=== PATIENT | female | born 1935 | race Caucasian/White ===

== ENCOUNTER 2019-03-18 17:44 | Inpatient (IN) | payer MEDICARE, BC ==
[~2019-03-18] VITALS: Ht 152.4 cm; Wt 52.2 kg
--- NOTE | 2019-03-18 17:50 | NUR ---
C/O GLF LAST NIGHT +R ARM PAIN AND BRUISING, -KO. PATIENT A/OX1, BREATHING EVEN AND UNLABORED, NO SOB NOTED, DPOA COUSIN AT BEDSIDE. PATIENT TRANSFERRED TO BED. WAITING FOR MD WATSON.
[2019-03-18 17:59] LABS: BASOPHILS % (AUTO) 0.3 % (0.0-2.0); EOSINOPHILS % (AUTO) 1.2 % (0.0-6.0); HEMATOCRIT 35 % (33-45); HEMOGLOBIN 11.7 g/dL (11.5-14.8); LYMPHOCYTES # (AUTO) 1.1 /CMM (0.8-4.8); LYMPHOCYTES % (AUTO) 7.8 % (20.0-44.0); MEAN CORPUSCULAR HGB CONC 33 g/dl (31.0-36.0); MEAN CORPUSCULAR VOLUME 92 fL (82-100); MONOCYTES # (AUTO) 0.9 /CMM (0.1-1.30); MONOCYTES % (AUTO) 6.8 % (2.0-12.0); NEUTROPHILS # (AUTO) 11.4 /CMM (1.8-8.9); NEUTROPHILS % (AUTO) 83.9 % (43.0-81.0); PLATELET COUNT (AUTO) 152 /CMM (150-450); RED BLOOD CELL COUNT(AUTO) 3.82 MIL/uL (4.0-5.2); WHITE BLOOD COUNT (AUTO) 13.6 K/uL (4.3-11.0)
--- NOTE | 2019-03-18 18:03 | NUR ---
ROUTE PROCESS ADMINISTRATOR AT BEDSIDE.
[2019-03-18 18:17] LABS: ALANINE AMINOTRANSFERASE 10 U/L (12-78); ALBUMIN 3.2 g/dL (3.4-5.0); ALKALINE PHOSPHATASE 71 U/L (46-116); ASPARTATE AMINOTRANSFERASE 45 U/L (15-37); BILIRUBIN,DIRECT 0.1 mg/dL (0.0-0.2); CALCIUM, SERUM 7.4 mg/dL (8.5-10.1); CARBON DIOXIDE 28 mmol/L (21-32); CHLORIDE 106 mmol/L (98-107); CREATININE 1.2 mg/dL (0.6-1.3); GLUCOSE 127 mg/dL (74-106); SODIUM SERUM 142 mmol/L (136-145); TOTAL PROTEIN, SERUM 7.3 g/dL (6.4-8.2); UREA NITROGEN, BLOOD 51 mg/dL (7-18)
--- NOTE | 2019-03-18 18:24 | NUR ---
PATIENT TAKEN TO CT.
[2019-03-18] MEDS ORDERED: GUAI5SYR PO (18:38)
[2019-03-18] MEDS ORDERED: POTA8TAB3 PO (18:38)
[2019-03-18] MEDS ORDERED: CARB1TAB24 PO (18:38)
[2019-03-18] MEDS ORDERED: LISI-603 PO (18:38)
[2019-03-18] MEDS ORDERED: MELO-105 PO (18:38)
[2019-03-18] MEDS ORDERED: FURO-145 PO (18:38)
--- NOTE | 2019-03-18 18:57 | NUR ---
URINE OBTAINED VIA STRAIGHT CATH, UA SENT TO LAB.
[2019-03-18 19:00] LABS: APPEARANCE,URINE Cloudy (CLEAR); BILIRUBIN,URINE Negative (NEGATIVE); BLOOD, URINE Small Ery/uL (NEGATIVE); COLOR,URINE Yellow (YELLOW); KETONES,URINE Negative (NEGATIVE); LEUKOCYTE ESTERASE ,URINE Small (NEGATIVE); NITRITE, URINE Positive (NEGATIVE); PH,URINE 5.5 (5.0-8.0); PROTEIN,URINE 100 mg/dl (NEGATIVE); UGLUCOSE Negative (NEGATIVE); UROBILINOGEN,URINE 0.2 EU/dL (0.2)
--- NOTE | 2019-03-18 19:06 | NUR ---
REPORT GIVEN TO HELEN RAZA.
[2019-03-18 19:13] LABS: BACTERIA,URINE 2+ /HPF (None Seen); SQUAMOUS EPITHELIAL CELL,UR Many /HPF (None Seen)
[2019-03-18 19:14] LABS: MUCUS,URINE Moderate /LPF (None Seen)
[2019-03-18] MEDS ORDERED: CEFTRIAXONE 1GM BAG (ER ONLY) 1 GM/50 ML PIGGYBACK IV ONE (19:30)
[2019-03-18] MEDS ORDERED: FUROSEMIDE 20 MG/2 ML VIAL IV ONE (19:30)
[2019-03-18] MEDS ORDERED: ASPIRIN 325 MG TABLET PO ONE (19:30)
[2019-03-18] MEDS ORDERED: FUROSEMIDE 20 MG/2 ML VIAL ONE (19:47)
[2019-03-18] MEDS ORDERED: CEFTRIAXONE 1GM BAG (ER ONLY) 50 ML IV ONE (19:47)
[2019-03-18] MEDS ORDERED: ASPIRIN 325 MG TABLET ONE (19:48)
--- NOTE | 2019-03-18 21:25 | NUR ---
Patient is resting comfortably in bed with eyes closed. Easily aroused. VSS. FAMILY AT BEDSIDE.
--- NOTE | 2019-03-18 21:46 | NUR ---
BED 309-1
--- NOTE | 2019-03-18 21:58 | NUR ---
REPORT GIVEN TO LUZ MARINA BRAVO FOR KORIN
[2019-03-18 22:08] VITALS: BP 130/70
--- NOTE | 2019-03-18 22:08 | NUR ---
RECEIVED PATIENT FROM ER VIA GURNEY IN STABLE CONDITION. PATIENT ACCOMPANIED BY JOAO (COUSIN/HEALTHCARE DPOA). PATIENT AWAKE, A/O X1N NON VERBAL BUT ABLE TO NOD TO YES OR NO QUESTIONS. PER COUSIN, PATIENT IS ONLY VERBAL DURING DAY HOURS WHEN SHE IS NOT TIRED. LEFT ARM SPLINT IN PLACE. NO FACIAL GRIMACING OR GROANING TO INDICATE PAIN OR DISCOMFORT. PERIPHERAL LINE INTACT AND PATENT. PATIENT S/E BY DR. RUBI ECHEVARRIA AND DISCUSSED POC WITH DPOA WHO VERBALIZED GOOD UNDERSTANDING. AWAITING ADMISSION ORDERS. BED IN LOW LOCK SETTING. ALL BELONGINGS KEPT NEAR BEDSIDE.
[2019-03-18] MEDS ORDERED: NITROGLYCERIN 0.4 MG/TAB BOTTLE SL PRN (23:00)
[2019-03-18] MEDS ORDERED: HEPARIN SODIUM, PORCINE 5000 UNITS/1 ML VIAL SQ SCH (23:00)
[2019-03-18] MEDS ORDERED: ONDANSETRON HCL/PF 4 MG/2 ML VIAL IV PRN (23:00)
[2019-03-18] MEDS ORDERED: METOPROLOL TARTRATE 25 MG TABLET PO SCH (23:00)
[2019-03-18] MEDS ORDERED: GUAIFENESIN/D-METHORPHAN HB 5 ML UDC PO PRN (23:00)
[2019-03-18] MEDS ORDERED: CEFTRIAXONE 1 G in IV D5W 50 ML IV SCH (23:00)
[2019-03-18] MEDS ORDERED: IV NS 0.9% 1,000 ML BAG IV SCH (23:00)
[2019-03-18] MEDS ORDERED: HYDROCODONE/APAP 5/325MG 1 EACH TABLET PO PRN (23:00)
[2019-03-18] MEDS: ATORVASTATIN 40 MG TABLET PO SCH (23:30)
[2019-03-19] VITALS: BP 109/63
[2019-03-19 04:00] VITALS: BP 130/62
--- NOTE | 2019-03-19 06:23 | NUR ---
BOX BUILDER NOTES PATIENT ASLEEP IN BED WITH NO DISTRESS NOTED. CALL LIGHT WITHIN REACH. PERIPHERAL LINE INTACT AND PATENT. NO C/O PAIN OR DISCOMFORT. BED IN LOW LOCK SETTING. BED ALARM ON AND FUNCTIONING PROPERLY. ALL BELONGINGS KEPT NEAR BEDSIDE. WILL ENDORSE TO ONCOMING SHIFT.
--- NOTE | 2019-03-19 07:15 | NUR ---
TELE/RN NOTE THE PATIENT IS RECEIVED IN BED. PATIENT SLEEPING. IN ROOM AIR AND RESPIRATION REGULAR AND UNLABORED. NO S/S DISTRESS. RAC G 20 PATENT AND NORMAL SALINE INFUSING AT 70 ML/HR AND NO S/S INFILTRATION NOTED. BED LOW AND LOCKED. SIDE RAILS UP X3. CALL LIGHT WITHIN REACH. WILL CONTINUE TO MONITOR.
[2019-03-19 07:33] LABS: ALANINE AMINOTRANSFERASE 23 U/L (12-78); ALBUMIN 2.6 g/dL (3.4-5.0); ALKALINE PHOSPHATASE 53 U/L (46-116); ASPARTATE AMINOTRANSFERASE 31 U/L (15-37); CALCIUM, SERUM 8.1 mg/dL (8.5-10.1); CARBON DIOXIDE 25 mmol/L (21-32); CHLORIDE 109 mmol/L (98-107); GLUCOSE 117 mg/dL (74-106); POTASSIUM 3.4 mmol/L (3.5-5.1); SODIUM SERUM 144 mmol/L (136-145); UREA NITROGEN, BLOOD 41 mg/dL (7-18)
[2019-03-19 07:56] LABS: IRON, SERUM 18 ug/dl (50-175); TOTAL IRON BINDING CAPACITY 145 ug/dl (250-450)
[2019-03-19 07:57] LABS: BASOPHILS % (AUTO) 0.4 % (0.0-2.0); EOSINOPHILS % (AUTO) 2.4 % (0.0-6.0); HEMATOCRIT 30 % (33-45); LYMPHOCYTES # (AUTO) 0.6 /CMM (0.8-4.8); LYMPHOCYTES % (AUTO) 6.7 % (20.0-44.0); MEAN CORPUSCULAR HGB CONC 33 g/dl (31.0-36.0); MEAN CORPUSCULAR VOLUME 92 fL (82-100); MONOCYTES # (AUTO) 0.6 /CMM (0.1-1.30); MONOCYTES % (AUTO) 6.5 % (2.0-12.0); NEUTROPHILS # (AUTO) 8.1 /CMM (1.8-8.9); PLATELET COUNT (AUTO) 117 /CMM (150-450); RED BLOOD CELL COUNT(AUTO) 3.27 MIL/uL (4.0-5.2); WHITE BLOOD COUNT (AUTO) 9.6 K/uL (4.3-11.0)
[2019-03-19 08:00] VITALS: BP 112/51
[2019-03-19 08:17] VITALS: BP 115/51
[2019-03-19] MEDS: ASPIRIN 81 MG TAB.CHEW PO SCH (09:31)
[2019-03-19] MEDS: POTASSIUM CHLORIDE 20 MEQ TAB.PRT.SR PO SCH ×2 (09:31→11:17)
[2019-03-19] MEDS: METOPROLOL TARTRATE 25 MG TABLET PO SCH ×2 (09:32→22:28)
[2019-03-19] MEDS: HEPARIN SODIUM, PORCINE 5000 UNITS/1 ML VIAL SQ SCH ×2 (09:33→23:02)
[2019-03-19] MEDS: PANTOPRAZOLE 40 MG TABLET.DR PO SCH (09:35)
[2019-03-19] MEDS: CARBIDOPA/LEVODOPA 25/250 MG 1 UDTAB PO SCH ×5 (09:35→22:28)
[2019-03-19 09:41] LABS: MAGNESIUM 2.3 mg/dL (1.8-2.4); PHOSPHORUS 3.7 mg/dL (2.5-4.9)
[2019-03-19 10:11] LABS: CHOLESTEROL 186 mg/dL (<200); HDL CHOLESTEROL 73 mg/dL (40-60); LDL 98 mg/dL (0-99); TRIGLYCERIDES 56 mg/dL (30-150)
[2019-03-19 10:44] LABS: THYROID STIMULATING HORMONE 2.006 uIU/mL (0.358-3.74)
[2019-03-19] MEDS: SOD FERRIC GLUC 125 MG in IV NS 0.9% 100 ML IV SCH (15:28)
[2019-03-19] MEDS: IV NS 0.9% 1,000 ML IV PRN ×2 (15:28)
--- NOTE | 2019-03-19 18:32 | NUR ---
MS/RN NOTE THE PATIENT IN BED. AWAKE. ALERT AND ORIENTED X1. NON-VERBAL BUT ABLE TO COMMUNICATE WITH SMALL GESTURES. IN ROOM AIR AND SATURATION IS AT 97%. RESPIRATION REGULAR AND UNLABORED. NO MANIFESTATION OF DISTRESS NOTED. RAC G 20 PATENT AND NORMAL SALINE INFUSING AT 60ML/HR AND NO S/S INFILTRATION NOTED. BEBETO LOW AND LOCKED. SIDE RAILS UP X3. CALL LIGHT WITHIN REACH. WILL ENDORSE TO CANDY MAKER HELPER.
[2019-03-19 20:00] VITALS: BP 140/86
[2019-03-19] MEDS: CEFTRIAXONE 1 G in IV D5W 50 ML IV SCH (20:15)
[2019-03-19] MEDS: ATORVASTATIN 40 MG TABLET PO SCH (22:28)
[2019-03-20 06:49] LABS: BASOPHILS % (AUTO) 0.3 % (0.0-2.0); EOSINOPHILS % (AUTO) 3.8 % (0.0-6.0); HEMATOCRIT 31 % (33-45); HEMOGLOBIN 10.3 g/dL (11.5-14.8); LYMPHOCYTES # (AUTO) 0.8 /CMM (0.8-4.8); LYMPHOCYTES % (AUTO) 9.5 % (20.0-44.0); MEAN CORPUSCULAR HGB CONC 34 g/dl (31.0-36.0); MEAN CORPUSCULAR VOLUME 92 fL (82-100); MONOCYTES # (AUTO) 0.7 /CMM (0.1-1.30); MONOCYTES % (AUTO) 8.1 % (2.0-12.0); NEUTROPHILS # (AUTO) 6.4 /CMM (1.8-8.9); NEUTROPHILS % (AUTO) 78.3 % (43.0-81.0); PLATELET COUNT (AUTO) 155 /CMM (150-450); RED BLOOD CELL COUNT(AUTO) 3.32 MIL/uL (4.0-5.2); WHITE BLOOD COUNT (AUTO) 8.1 K/uL (4.3-11.0)
--- NOTE | 2019-03-20 06:53 | NUR ---
MS RN NOTES PATIENT ASLEEP IN BED WITH NO DISTRESS NOTED. CALL LIGHT WITHIN REACH. ALL DUE MEDS GIVEN ORDERED WITH NO ASE NOTED. NO C/O PAIN OR DISCOMFORT. PERIPHERAL LINE INTACT AND PATENT. BED IN LOW LOCK SETTING. BED ALARM ON AND FUNCTIONING PROPERLY. ALL BELONGINGS KEPT NEAR BEDSIDE. WILL CONTINUE TO MONITOR.
[2019-03-20 07:16] LABS: CALCIUM, SERUM 8.4 mg/dL (8.5-10.1); CARBON DIOXIDE 27 mmol/L (21-32); CREATININE 0.9 mg/dL (0.6-1.3); GLUCOSE 114 mg/dL (74-106); MAGNESIUM 2.6 mg/dL (1.8-2.4); PHOSPHORUS 3.4 mg/dL (2.5-4.9); UREA NITROGEN, BLOOD 33 mg/dL (7-18)
--- NOTE | 2019-03-20 07:20 | NUR ---
MS/RN OPENING NOTE THE PATIENT IS RECEIVED IN BED. AWAKE, ALERT AND ORIENTED X1. THE PATIENT ABLE TO RESPOND VERBALLY. RECEIVING OXYGEN AT 2L/MIN VIA NASAL CANNULA AND DENIES SOB. RESPIRATION REGULAR AND UNLABORED. DENIES PAIN. RAC G 20 PATENT AND NORMAL SALINE INFUSING AT 60 ML/HR. NO S/S INFILTRATION NOTED. BED LOW AND LOCKED. SIDE RAILS UP X3. CALL LIGHT WITHIN REACH. WILL CONTINUE TO MONITOR.
[2019-03-20 07:29] LABS: CHLORIDE 108 mmol/L (98-107); POTASSIUM 4.3 mmol/L (3.5-5.1); SODIUM SERUM 143 mmol/L (136-145)
[2019-03-20 08:00] VITALS: BP 135/68
[2019-03-20] MEDS: ASPIRIN 81 MG TAB.CHEW PO SCH (08:09)
[2019-03-20] MEDS: CARBIDOPA/LEVODOPA 25/250 MG 1 UDTAB PO SCH ×5 (08:09→21:47)
[2019-03-20] MEDS: PANTOPRAZOLE 40 MG TABLET.DR PO SCH (08:09)
[2019-03-20] MEDS: METOPROLOL TARTRATE 25 MG TABLET PO SCH ×2 (08:10→21:00)
[2019-03-20] MEDS: HEPARIN SODIUM, PORCINE 5000 UNITS/1 ML VIAL SQ SCH ×2 (08:24→21:49)
[2019-03-20] MEDS: IV NS 0.9% 1,000 ML IV PRN (10:59)
[2019-03-20] MEDS ORDERED: ACETAMINOPHEN 325 MG TABLET PO PRN (13:30)
[2019-03-20] MEDS: SOD FERRIC GLUC 125 MG in IV NS 0.9% 100 ML IV SCH (15:02)
[2019-03-20 15:51] VITALS: BP 137/72
[2019-03-20 16:00] VITALS: BP 137/72
--- NOTE | 2019-03-20 19:04 | NUR ---
MS/RN CLOSING NOTE THE PATIENT ALERT AND ORIENTED X1. ABLE TO MAKE NEEDS KNOWN VERBALLY. RECEIVING OXYGEN AT 2L/MIN VIA NASAL CANNULA AND DENIES SOB. RESPIRATION REGULAR AND UNLABORED. DENIES PAIN. THE PATIENT IN NO APPARENT DISTRESS. LEFT HAND IS ELEVATED ON A PILLOW TO REDUCE SWELLING. NO S/S POOR CIRCULATION NOTED. RAC G 20 PATENT AND SALINE LOCKED. BED LOW AND LOCKED. SIDE RAILS UP X3. CALL LIGHT WITHIN REACH. WILL ENDORSE TO TRUCK SHOP MECHANIC.
[2019-03-20 20:00] VITALS: BP 110/64
--- NOTE | 2019-03-20 20:08 | NUR ---
MS RN NOTES RECEIVED PATIENT AWAKE IN BED WITH NO DISTRESS NOTED. CALL LIGHT WITHIN REACH. FAMILY AT BEDSIDE. PERIPHERAL LINE INTACT AND PATENT. NO FACIAL GRIMACING OR GROANING TO INDICATE PAIN OR DISCOMFORT. BED IN LOW LOCK SETTING. ROOM FREE OF CLUTTER AND BELONGINGS KEPT NEAR BEDSIDE. WILL CONTINUE TO MONITOR.
[2019-03-20] MEDS: CEFTRIAXONE 1 G in IV D5W 50 ML IV SCH (20:35)
[2019-03-20] MEDS: ATORVASTATIN 40 MG TABLET PO SCH (21:47)
[2019-03-21] MEDS: CARBIDOPA/LEVODOPA 25/250 MG 1 UDTAB PO SCH ×5 (07:00→21:15)
[2019-03-21 07:15] LABS: BASOPHILS % (AUTO) 0.3 % (0.0-2.0); EOSINOPHILS % (AUTO) 3.5 % (0.0-6.0); HEMATOCRIT 30 % (33-45); HEMOGLOBIN 10.1 g/dL (11.5-14.8); LYMPHOCYTES % (AUTO) 12.4 % (20.0-44.0); MEAN CORPUSCULAR HGB CONC 34 g/dl (31.0-36.0); MEAN CORPUSCULAR VOLUME 92 fL (82-100); MONOCYTES # (AUTO) 0.7 /CMM (0.1-1.30); MONOCYTES % (AUTO) 8.2 % (2.0-12.0); NEUTROPHILS # (AUTO) 6.2 /CMM (1.8-8.9); NEUTROPHILS % (AUTO) 75.6 % (43.0-81.0); PLATELET COUNT (AUTO) 189 /CMM (150-450); RED BLOOD CELL COUNT(AUTO) 3.26 MIL/uL (4.0-5.2); WHITE BLOOD COUNT (AUTO) 8.2 K/uL (4.3-11.0)
[2019-03-21 07:25] LABS: ALANINE AMINOTRANSFERASE 20 U/L (12-78); ALBUMIN 2.6 g/dL (3.4-5.0); ALKALINE PHOSPHATASE 81 U/L (46-116); ASPARTATE AMINOTRANSFERASE 41 U/L (15-37); BILIRUBIN,TOTAL 0.8 mg/dL (0.2-1.0); CALCIUM, SERUM 8.2 mg/dL (8.5-10.1); CARBON DIOXIDE 26 mmol/L (21-32); CHLORIDE 110 mmol/L (98-107); CREATININE 0.9 mg/dL (0.6-1.3); GLUCOSE 107 mg/dL (74-106); MAGNESIUM 2.4 mg/dL (1.8-2.4); PHOSPHORUS 3.2 mg/dL (2.5-4.9); POTASSIUM 3.9 mmol/L (3.5-5.1); SODIUM SERUM 145 mmol/L (136-145); TOTAL PROTEIN, SERUM 6.1 g/dL (6.4-8.2); UREA NITROGEN, BLOOD 28 mg/dL (7-18)
--- NOTE | 2019-03-21 07:35 | NUR ---
MS RN OPENING NOTE RECEIVED PT IN BED, ALERT AND ORIENTED X1, EYES OPEN SPONTANEOUSLY TO VERBAL AND TACTILE STIMULI, NO ACUTE DISTRESS NOTED AT THIS TIME, BREATHING IS EVEN AND UNLABORED ON 2L NC. LEFT HAND BRACE IN PLACE, NEUROVASCULAR STATUS INTACT. RIGHT HAND #20G IS PATENT, CLEAN, DRY AND INTACT. ASPIRATION PRECAUTIONS MAINTAINED. ALL NEEDS ATTENDED TO. BED IS LOCKED AND IN LOWEST POSITION, SIDE RAILS UP X2, BED ALARM ON, CALL LIGHT AND POSSESSIONS WITHIN REACH.
[2019-03-21 08:00] VITALS: BP 148/70
[2019-03-21] MEDS: PANTOPRAZOLE 40 MG TABLET.DR PO SCH (08:39)
[2019-03-21] MEDS: HEPARIN SODIUM, PORCINE 5000 UNITS/1 ML VIAL SQ SCH ×2 (08:40→21:10)
[2019-03-21] MEDS: METOPROLOL TARTRATE 25 MG TABLET PO SCH ×2 (08:40→21:15)
[2019-03-21] MEDS: ASPIRIN 81 MG TAB.CHEW PO SCH (08:51)
[2019-03-21] MEDS: LOSARTAN POTASSIUM 50 MG TABLET PO SCH (09:00)
--- NOTE | 2019-03-21 10:16 | NUR ---
MS RN NOTES HELD JOSSELYN B/P 122/55 HR 56.
--- NOTE | 2019-03-21 14:49 | NUR ---
MS RN NOTE PAGED FOR , AWAITING RESPONSE.
--- NOTE | 2019-03-21 14:54 | NUR ---
MS RN NOTE SPOKE WITH ON THE PHONE. PER OKAY TO START KEFLEX 500MG BID AND D/C ALL IV MEDICATIONS AND FOR PT TO NOT HAVE IV ACCESS AT THIS TIME. INFORMED THAT FAMILY IS REFUSING D/C PENDING HOSPITAL BED DELIVERY WHICH PER LINDY CUNHA WILL MOST LIKELY NOT HAPPEN TODAY. PER , PT IS CLEARED FOR D/C, AND "I WANT PT TO GO, THEY CAN WAIT FOR THE HOSPITAL BED AT HOME". INFORMED PACKAGING SALES REPRESENTATIVE AND CHARGE NURSE.
[2019-03-21 16:00] VITALS: BP 144/68
[2019-03-21] MEDS: CEPHALEXIN MONOHYDRATE 500 MG CAPSULE PO SCH (17:54)
--- NOTE | 2019-03-21 18:10 | NUR ---
MS RN CLOSING NOTE PT IN BED, ALERT AND ORIENTED X1, EYES OPEN SPONTANEOUSLY TO VERBAL AND TACTILE STIMULI, NO ACUTE DISTRESS NOTED AT THIS TIME, BREATHING IS EVEN AND UNLABORED ON 2L NC. LEFT HAND BRACE IN PLACE, NEUROVASCULAR STATUS INTACT. PT WITHOUT IV ACCESS, AWARE. ADLS PROVIDED AND PT ASSISTED TO TURN AND REPOSITION Q2H FOR THE DURATION OF THE SHIFT. ASPIRATION PRECAUTIONS MAINTAINED. PRIVATE CAREGIVER AT THE BEDSIDE. ALL NEEDS ATTENDED TO. BED IS LOCKED AND IN LOWEST POSITION, SIDE RAILS UP X2, BED ALARM ON, CALL LIGHT AND POSSESSIONS WITHIN REACH.
--- NOTE | 2019-03-21 19:10 | NUR ---
CHANGE OF SHIFT REPORT Patient in bed, awake, A/O x1 poor concentration. On supplemental oxygen, appears comfortable in bed. No IV Peripheral line, MD aware per report. Pending discharge, awaiting hospital bed at home. Fall precaution, maintained safety. Caregiver at bedside.
[2019-03-21 20:00] VITALS: BP 114/84
[2019-03-21] MEDS: ATORVASTATIN 40 MG TABLET PO SCH (21:15)
[2019-03-21 22:11] VITALS: BP 114/84
[2019-03-22] MEDS: CARBIDOPA/LEVODOPA 25/250 MG 1 UDTAB PO SCH ×3 (06:00→15:09)
--- NOTE | 2019-03-22 06:07 | NUR ---
END OF SHIFT REPORT Patient in bed, A/O x 1. On supplemental oxygen, tolerating well. Left hand with splint, NWB left hand per ortho. No c/o pain, slept well. Reposition every 2 hours. Fall precaution, maintained safety. No acute events overnight. Pending discharge home, awaiting hospital bed at home. Will endorse to oncoming RN.
--- NOTE | 2019-03-22 07:30 | NUR ---
RN NOTES RECEIVED PATIENT IN BED, A/A/O X1, NOT ABLE TO MAKE NEEDS KNOWN. ON SUPPLEMENTAL OXYGEN VIA NASAL CANNULA AT 2 LPM, BREATHING UNLABORED, WITH FACIAL GRIMACE AT THIS TIME, WILL ADMINISTER PRN MEDICATION IF STILL NEEDED. PATIENT WITH NO IV LINE AT THIS TIME (PER FELICIANORN- ATTENDING MD IS AWARE). LEFT HAND SWELLING, WITH BRUISING TOO, XRAY RESULTS FOLLOWS: WITH 2ND AND 3RD METACARPAL BONE FRACTURE, HAND ON CAST AT THIS TIME. SAFETY MEASURES OBSERVED AND MAINTAINED. BED LOW AND LOCKED POSITIONED. CALL LIGHT PLACED WITHIN REACH. WILL CONTINUE TO MONITOR PATIENT AND ANTICIPATE NEEDS
[2019-03-22 08:00] VITALS: BP 109/61
[2019-03-22] MEDS: PANTOPRAZOLE 40 MG TABLET.DR PO SCH (09:16)
[2019-03-22] MEDS: ASPIRIN 81 MG TAB.CHEW PO SCH (09:16)
[2019-03-22] MEDS: CEPHALEXIN MONOHYDRATE 500 MG CAPSULE PO SCH (09:17)
[2019-03-22] MEDS: LOSARTAN POTASSIUM 50 MG TABLET PO SCH (09:17)
[2019-03-22] MEDS: METOPROLOL TARTRATE 25 MG TABLET PO SCH (09:18)
[2019-03-22] MEDS: HEPARIN SODIUM, PORCINE 5000 UNITS/1 ML VIAL SQ SCH (09:25)
--- NOTE | 2019-03-22 10:00 | NUR ---
RN NOTES PAGED CASE MANAGEMENT TEAM TO RELAY COUSIN'S REQUEST (AVELINO) TO TALK TO THEM. SPOKE TO PETAR, PER THE LATER WILL RELAY THE MESSAGE TO ALLISON.
--- NOTE | 2019-03-22 12:00 | NUR ---
RN NOTES COORDINATED WITH CASE MANAGEMENT REGARDING DISCHARGE
--- NOTE | 2019-03-22 13:27 | NUR ---
MS/RN Oxygen saturation Patient noted to be desaturating, pulse ox on room air ranging from 85 - 89%. Placed on 2l via nasal cannula, pulse ox now reading >90%. Addendum: 03/22/19 at 1408 by MIRIAN ANGUIANO saturation dropped to 85% upon ambulation, rising to 86% at rest.
--- NOTE | 2019-03-22 14:30 | NUR ---
RN NOTES FACILITATED DISCHARGE ORDERS. FAMILY'S QUESTIONS AND CONCERNS ADDRESSED APPROPRIATELY. SKIN ASSESSMENT DONE: SKI INTACT. ALL BELONGING ACCOUNTED FOR, NO BELONGINGS AT BEDSIDE. PER JOAO (COUSIN) PATIENT HAS NOT BEEN GIVEN PNEUMONIA VACCINE AND WAS REQUESTING IF IT CAN BE GIVEN, WILL PAGED DR ECHEVARRIA.
[2019-03-22] MEDS ORDERED: PNEUMOCOCCAL 23-VAL P-SAC VAC 0.5 ML VIAL SQ ONE (15:30)
--- NOTE | 2019-03-22 15:30 | NUR ---
RN NOTES OBTAINED ORDER FOR PNEUMONIA VACCINE FROM DR ECHEVARRIA. ORDER NOTED AND CARRIED OUT
--- NOTE | 2019-03-22 15:50 | NUR ---
RN NOTES PATIENT DISCHARGE. PRESCRIPTION AND DISCHARGE PACKET HANDED TO COUSIN (JOAO).ID BAND REMOVED. PATIENT WHEELED OUT VIA GURNEY ACCOMPANIED BY GURJIT( PRIVATE CAREGIVER) AND 2 EMT
[2019-03-22 16:00] VITALS: BP_SYST 132; BP_SYST 134; BP_DIAS 62
== END 2019-03-22 16:00 | disposition home or self-care (01) | DRG 562 ==
LOC: ER 17:46 → TELE 21:59 → MED 03-19 10:22
PROVIDERS: ADMIT Internal Medicine; ATTEND Internal Medicine
DX: S62.311A Displaced fracture of base of second metacarpal bone, left hand, initial encounter for closed fracture (principal); I21.A1 Myocardial infarction type 2; I21.4 Non-ST elevation (NSTEMI) myocardial infarction; G92 Toxic encephalopathy; N17.9 Acute kidney failure, unspecified; N39.0 Urinary tract infection, site not specified; E44.0 Moderate protein-calorie malnutrition; J98.11 Atelectasis; E86.0 Dehydration; W07.XXXA Fall from chair, initial encounter; Y92.129 Unspecified place in nursing home as the place of occurrence of the external cause; Z79.899 Other long term (current) drug therapy; D64.9 Anemia, unspecified; D50.9 Iron deficiency anemia, unspecified; I27.20 Pulmonary hypertension, unspecified; I50.9 Heart failure, unspecified; I11.0 Hypertensive heart disease with heart failure; S62.323A Displaced fracture of shaft of third metacarpal bone, left hand, initial encounter for closed fracture; G20 Parkinson's disease; Z79.82 Long term (current) use of aspirin; Z66 Do not resuscitate; Z51.5 Encounter for palliative care; R09.02 Hypoxemia; D63.8 Anemia in other chronic diseases classified elsewhere; B96.20 Unspecified Escherichia coli [E. coli] as the cause of diseases classified elsewhere
CPT/HCPCS: 36415; 70450-TC; 71045-TC; 73090-TC; 73130-TC; 80048-TC; 80053-TC; 80061-TC; 80076-TC; 81000-TC; 83540-TC; 83735-TC; 83880; 84100-TC; 84439-TC; 84443-TC; 84484-TC; 85025-TC; 85045-TC; 85730-TC; 87081-TC; 87086-TC; 87186-TC; 90732; 93307-TC; 93880-TC; 93970-TC; 94799-TC; 97110-TC; 97530-TC; G0378; J0696; J1644; J1940; J2916; J7030; J7060

== ENCOUNTER 2019-08-28 09:40 | Emergency (ER) | payer MEDICARE, BC ==
[~2019-08-28] VITALS: Ht 157.5 cm; Wt 49.0 kg
[~2019-08-28 09:40] MED LIST: CARB1TAB24 PO; FURO-145 PO; GUAI5SYR PO; LISI-603 PO; MELO-105 PO; POTA8TAB3 PO
--- NOTE | 2019-08-28 10:17 | NUR ---
blister popped, covered with dressing.
[2019-08-28 10:26] VITALS: BP 132/66
== END 2019-08-28 10:28 | disposition home or self-care (01) ==
LOC: ER 09:48
DX: S60.422A Blister (nonthermal) of right middle finger, initial encounter (principal); S60.424A Blister (nonthermal) of right ring finger, initial encounter; S60.426A Blister (nonthermal) of right little finger, initial encounter; G20 Parkinson's disease; Z79.899 Other long term (current) drug therapy; X58.XXXA Exposure to other specified factors, initial encounter; Y93.89 Activity, other specified; Y92.89 Other specified places as the place of occurrence of the external cause; Y99.8 Other external cause status

== ENCOUNTER 2020-03-10 15:39 | Inpatient (IN) | payer MEDICARE, BC ==
[~2020-03-10] VITALS: Ht 157.5 cm; Wt 41.3 kg
[2020-03-10] MEDS ORDERED: ACETAMINOPHEN 325 MG TABLET PO ONE (16:00)
[2020-03-10] MEDS ORDERED: IV NS 0.9% 1,000 ML BAG IV ONE (16:00)
--- NOTE | 2020-03-10 16:02 | NUR ---
CALLED [facility] [phone] FOR ACCEPTANCE.
[2020-03-10 16:11] LABS: BASOPHILS % (AUTO) 0.1 % (0.0-2.0); HEMATOCRIT 28 % (33-45); LYMPHOCYTES # (AUTO) 0.3 /CMM (0.8-4.8); LYMPHOCYTES % (AUTO) 1.7 % (20.0-44.0); MEAN CORPUSCULAR HGB CONC 32 g/dl (31.0-36.0); MEAN CORPUSCULAR VOLUME 88 fL (82-100); MONOCYTES # (AUTO) 0.1 /CMM (0.1-1.30); MONOCYTES % (AUTO) 0.3 % (2.0-12.0); NEUTROPHILS # (AUTO) 16.3 /CMM (1.8-8.9); NEUTROPHILS % (AUTO) 97.9 % (43.0-81.0); PLATELET COUNT (AUTO) 337 /CMM (150-450); RED BLOOD CELL COUNT(AUTO) 3.19 MIL/uL (4.0-5.2); WHITE BLOOD COUNT (AUTO) 16.6 K/uL (4.3-11.0)
[2020-03-10] MEDS ORDERED: ACETAMINOPHEN 325 MG TABLET ONE (16:14)
[2020-03-10 16:22] LABS: CALCIUM, SERUM 8.4 mg/dL (8.5-10.1); CARBON DIOXIDE 30 mmol/L (21-32); CHLORIDE 104 mmol/L (98-107); GLUCOSE 104 mg/dL (74-106); POTASSIUM 4.1 mmol/L (3.5-5.1); SODIUM SERUM 139 mmol/L (136-145); UREA NITROGEN, BLOOD 31 mg/dL (7-18)
[2020-03-10 16:23] LABS: APPEARANCE,URINE Clear (CLEAR); BILIRUBIN,URINE Negative (NEGATIVE); BLOOD, URINE Negative Ery/uL (NEGATIVE); COLOR,URINE Yellow (YELLOW); KETONES,URINE Negative (NEGATIVE); LEUKOCYTE ESTERASE ,URINE Negative (NEGATIVE); NITRITE, URINE Negative (NEGATIVE); PH,URINE 5.5 (5.0-8.0); PROTEIN,URINE 30 mg/dl (NEGATIVE); UGLUCOSE Negative (NEGATIVE); UROBILINOGEN,URINE 0.2 EU/dL (0.2)
--- NOTE | 2020-03-10 16:25 | NUR ---
BIBFAMILY FROM HOME TO ER BED 5. NON VERBAL BUT AWAKE AND ALERT. ABLE TO FOLLOW COMMAND. NON AMBULATORY, BROUGHT IN ON WHEELCHAIR. CAME IN FOR FEVER THAT STARTED TODAY. PER REPORT, PT HAVE PRESSURE ULCER ON R HIP AND COCCYX W/ R BEING UTD - BLACK ECHAR NOTED. 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 RECTAL TEMP NOTED 101.4. MD WAS AT THE BEDSIDE FOR EVAL. ORDERS RECEIVED, NOTED AND CARRIED OUT. IV LINE OBTAINED ON THE LFA 18G. BLOO DRAWN AND GIVEN TO FINISHING MACHINE OPERATOR. PT IN ON MONITOR.
[2020-03-10 16:28] LABS: ALANINE AMINOTRANSFERASE 10 U/L (12-78); ALBUMIN 2.1 g/dL (3.4-5.0); ALKALINE PHOSPHATASE 130 U/L (46-116); ASPARTATE AMINOTRANSFERASE 41 U/L (15-37); BILIRUBIN,DIRECT 0.2 mg/dL (0.0-0.2); BILIRUBIN,TOTAL 0.5 mg/dL (0.2-1.0); TOTAL PROTEIN, SERUM 6.3 g/dL (6.4-8.2)
[2020-03-10] MEDS ORDERED: VANCOMYCIN 1 GM in IV D5W 250 ML IV ONE (16:30)
[2020-03-10] MEDS ORDERED: CEFEPIME 1 GM in IV D5W 50 ML IV ONE (16:30)
--- NOTE | 2020-03-10 16:30 | NUR ---
COVID SWAB SENT TO LAB
[2020-03-10 16:35] LABS: BACTERIA,URINE Few /HPF (None Seen); RBC,URINE 0-2 /HPF (0-2); URINE AMORPHOUS PHOSPHATES Few /HPF (None Seen); WBC,URINE 0-2 /HPF (0-3)
[2020-03-10 16:36] LABS: MUCUS,URINE Few /LPF (None Seen)
--- NOTE | 2020-03-10 17:46 | NUR ---
REPORT GIVEN LUZ MARINA DYER FOR KORIN
--- NOTE | 2020-03-10 18:04 | NUR ---
PT TRANSPORTED TO UNIT ON GURNEY WITH EMT AND RN AT BEDSIDE W/ ACLS PROTOCOL. NAD NOTED DURING TRANSPORT.
--- NOTE | 2020-03-10 18:45 | NUR ---
RN OPENING NOTE Patient was transferred to room 116-2 with 2 nurses from ER. Hooked to tele monitor. Vital signs as follows temp: 98.7 HR 86 RR 18 O2 Sat 95% BP 106/61. On room air tolerating well. Informed Dr. Jaramillo patient is here. Gave his phone number to call for orders. Will endorse to overnight caregiver nurse for carol
[2020-03-10 18:52] LABS: C-REACTIVE PROTEIN 18.3 mg/dL (0.0-0.9)
[2020-03-10] MEDS ORDERED: ENOXAPARIN SODIUM 40 MG/0.4 ML DISP.SYRIN SQ STA (19:01)
--- NOTE | 2020-03-10 19:30 | NUR ---
RN OPENING NOTES Received patient resting in bed with VS as follow: T 98.5; HR 88, O2 of 92% on RA; BP 109/60. A/O x1, nonverbal. The patient is a patient of Remi Whitaker. The patient has been placed on NC ON 2L of O2. Now the patient is saturating at 100%. Upon assessment, wound on the sacral area and on the R- Hip has been noted. Bilateral heel redness. Ear skin tear on left ear on the antihelix fold. The patient is DNR/ DNI. The patient was admitted for severe sepsis. Orders for medications were taken over the phone. will continue to monitor and follow the MD recommendations. All safety mechanisms are in place, bed is in the lowest position, locked, side rails up x2. call light within reach.
[2020-03-10 20:00] VITALS: BP 112/60
[2020-03-10] MEDS ORDERED: ONDANSETRON HCL/PF 4 MG/2 ML VIAL IV PRN (20:30)
[2020-03-10] MEDS ORDERED: GUAIFENESIN/D-METHORPHAN HB 5 ML UDC PO PRN (20:30)
--- NOTE | 2020-03-10 21:00 | NUR ---
RN NOTES, CALLED DR ECHEVARRIA TO FOLLOW UP WITH ADMISSION ORDERS, AND MD REPLIED WITH ADMISSION ORDERS, ALL ORDERS NOTED AND CARRIED OUT, WILL ADMINISTER MEDICATIONS ORDERED, WILL CONTINUE TO MONITOR CLOSELY.
[2020-03-10] MEDS: IV D5/0.45 NACL 1,000 ML IV PRN (21:11)
[2020-03-10] MEDS: ENOXAPARIN SODIUM 30 MG/0.3 ML DISP.SYRIN SQ SCH (21:42)
[2020-03-10 22:00] VITALS: BP 116/60
[2020-03-11] VITALS (8 sets, daily range): BP systolic 87–128; BP diastolic 44–67
--- NOTE | 2020-03-11 | NUR ---
Wound culture sample was collected from the sacral area.
[2020-03-11] MEDS ORDERED: CEFEPIME 1 GM VIAL ONE (05:56)
[2020-03-11] MEDS ORDERED: CEFEPIME 1 GM VIAL IV SCH (06:00)
[2020-03-11] MEDS: ACETAMINOPHEN 325 MG TABLET PO PRN (06:07)
[2020-03-11] MEDS: CEFEPIME 1 GM in IV NS 0.9% 50 ML IV SCH ×2 (06:07→17:58)
[2020-03-11 06:17] LABS: BASOPHILS % (AUTO) 0.2 % (0.0-2.0); HEMATOCRIT 27 % (33-45); HEMOGLOBIN 8.8 g/dL (11.5-14.8); LYMPHOCYTES # (AUTO) 0.2 /CMM (0.8-4.8); LYMPHOCYTES % (AUTO) 1.6 % (20.0-44.0); MEAN CORPUSCULAR HGB CONC 32 g/dl (31.0-36.0); MEAN CORPUSCULAR VOLUME 88 fL (82-100); MONOCYTES # (AUTO) 0.1 /CMM (0.1-1.30); MONOCYTES % (AUTO) 1.3 % (2.0-12.0); NEUTROPHILS # (AUTO) 11.3 /CMM (1.8-8.9); NEUTROPHILS % (AUTO) 96.9 % (43.0-81.0); PLATELET COUNT (AUTO) 295 /CMM (150-450); RED BLOOD CELL COUNT(AUTO) 3.12 MIL/uL (4.0-5.2); WHITE BLOOD COUNT (AUTO) 11.6 K/uL (4.3-11.0)
--- NOTE | 2020-03-11 06:21 | NUR ---
Gave Tylenol (650mg) to patient for a temperature of 100.4, will reassess in 30min.
--- NOTE | 2020-03-11 06:24 | NUR ---
RN CLOSING NOTES The patient is resting on bed. A/O x1, nonverbal. VS are WNL. no S/S acute respiratory distress noted. The patient remains on 2L OF O2 NC, SATURATING AT 100%. The pt is on external tele monitor, SR, HR 70's. The patient has a wound on the right hip, on the sacral area, and redness on both heels. The patient has an 18G on the left arm, running D5 1/2 NS @ 85 ml/hr. The remains stable at this time. All safety mechanisms in place, bed alarm on, locked in the lowest position, and call light within reach. Will endorse the next shift for the continuity of care.
[2020-03-11 06:35] LABS: THYROID STIMULATING HORMONE 2.141 uIU/mL (0.358-3.74)
[2020-03-11 06:37] LABS: ALBUMIN 1.9 g/dL (3.4-5.0); BILIRUBIN,TOTAL 0.4 mg/dL (0.2-1.0); CALCIUM, SERUM 8.1 mg/dL (8.5-10.1); CREATININE 0.9 mg/dL (0.6-1.3); POTASSIUM 3.9 mmol/L (3.5-5.1); TOTAL PROTEIN, SERUM 6.2 g/dL (6.4-8.2)
--- NOTE | 2020-03-11 07:30 | NUR ---
RN OPENING NOTES PATIENT RESTING IN BED, AO X 1, NONVERBAL, OBEYS SIMPLE COMMAND, ON 2L O2 NC, 100% SAT, AFEBRILE, NO SIGNS OF PAIN, . SR HR 78, LEFT FA IV ACCESS FLUSHES WELL, SITE CLEAR. WITH D5 1/2 NS AT 85 ML/HR. RUNNING. SEE NURSING FLOWSHEET FOR SKIN ISSUES. FOR WOUND CONSULT. UNABLE TO UNDERSTAND POC, BED LOW LOCKED. CALL LIGHT WITHIN REACH, WILL TURN AND REPOSITION Q 2 HOURS. CALL LIGHT WITHIN REACH. WILL CONTINUE TO MONITOR.
[2020-03-11] MEDS ORDERED: CARBIDOPA/LEVODOPA 25/250 MG 1 UDTAB PO SCH (09:00)
[2020-03-11] MEDS: PANTOPRAZOLE 40 MG TABLET.DR PO SCH (09:54)
[2020-03-11] MEDS: VANCOMYCIN 0.75 GM in IV D5W 250 ML IV SCH (10:01)
[2020-03-11] MEDS: IV D5/0.45 NACL 1,000 ML IV PRN (10:24)
--- NOTE | 2020-03-11 12:24 | NUR ---
WOUND CARE CONSULT: PT PRESENTS WITH FOUL PURULENT WOUNDS, PRESENT ON ADMISSION INCLUDING RT HIP WOUND (UNSTAGEABLE)WITH NECROTIC TISSUE, LEFT HIP WOUND (UNSTAGEABLE) WITH NECROTIC TISSUE AND SACRAL STAGE 4 ULCER WELL LEFT EAR STAGE 4 ULCER, ALL PRESENT ON ADMISSION. RECOMMENDATIONS MADE FOR SKIN PROTECTION AND WOUND CARE. DISCUSSED WITH NURSING STAFF. PT IS ON ARABELLA ISOFLEX LOW AIRLOSS BED. PT IS INCONTINENT. LEGS ARE DRAWN UP TO BODY. DIETARY CONSULT IN PLACE. WILL SEE PRN. MOSELEY IN AGREEMENT WITH PLAN OF CARE. Addendum: 03/11/20 at [address] ECHEVARRIA CALLED TO DISCUSS WOUNDS AND RECOMMENDATION FOR SURGICAL CONSULT. LEFT. Addendum: 03/11/20 at 1251 by DAT CARABALLO RECEIVED CALL FROM DR ECHEVARRIA FOR SURGICAL CONSULT. VEL GALLEGOS, SURGICAL P.A. NOTIFIED OF SURGICAL CONSULT REQUEST.
[2020-03-11] MEDS ORDERED: Z GUARD REMEDY 2 OZ OINT TP PRN (12:30)
--- NOTE | 2020-03-11 12:30 | NUR ---
RN NOTES BUTT CATHETER IN PLACE DRAINING YELLOW TURBID URINE. ADEQUATE AMOUNT.
[2020-03-11] MEDS ORDERED: IV NS 0.9% 500 ML IV ONE (14:30)
[2020-03-11] MEDS ORDERED: MORPHINE SULFATE INJ 2 MG/ML DISP.SYRIN IV PRN (15:30)
[2020-03-11] MEDS: DAKINS QUARTER STRENGTH (0.125%) 480 ML BOTTLE TOP SCH (15:33)
[2020-03-11] MEDS: Z GUARD REMEDY 2 OZ OINT TP SCH (15:34)
[2020-03-11] MEDS: HYDROGEL DRESSING 90 GM TUBE TP SCH (15:35)
[2020-03-11] MEDS ORDERED: LISINOPRIL (20MG) 20 MG TABLET PO SCH (17:00)
[2020-03-11] MEDS: ENSURE ENLIVE CHOC 237 ML CAN PO SCH (17:59)
--- NOTE | 2020-03-11 18:55 | NUR ---
RN CLOSING NOTES PATIENT RESTING IN BED, AO X 1, NONVERBAL, OBEYS SIMPLE COMMAND, ON 2L O2 NC, 98% SAT, AFEBRILE, NO SIGNS OF PAIN, . SR HR 78, LEFT FA IV ACCESS FLUSHES WELL, SITE CLEAR. WITH D5 1/2 NS AT 85 ML/HR. RUNNING. PRESCRIBED WOUND CARE AND PM CARE DONE EARLIER. PUREED DIET. FEEDER. CRUSHED MEDS. BUTT CATH IN PLACE WITH 800 ML OUTPUT. BED LOW LOCKED. CALL LIGHT WITHIN REACH, TURNED AND REPOSITIONED Q 2 HOURS. CALL LIGHT WITHIN REACH. ALL NEEDS MET. WILL ENDORSE TO NEXT SHIFT FOR KORIN. SEEN BY DR. ECHEVARRIA EARLIER. POC DISCUSSED WITH ELPIDIO ODONNELL FOR DEBRIDEMENT OF WOUND PER VEL GALLEGOS TOMORROW. NEEDS CONSENT.
--- NOTE | 2020-03-11 20:44 | NUR ---
RN NOTE RECEIVED ALERT FOR CRITICAL LAB RESULT: PRELIMINARY BLOOD CULTURE SHOWS GRAM VARIABLE RODS. PT IS ALREADY ON VANCOMYCIN AND MERREM IV. NOTIFIED DR. GONG ( MIXER PIGMENT).
--- NOTE | 2020-03-11 20:54 | NUR ---
RN NOTE ENDORSED BY AM NURSE THAT PT WILL BE HAVING WOUND DEBRIDEMENT TOMORROW. NOTED WITHOUT ORDER IN CHART. CALLED EL FUNES AND CLARIFIED THAT WOUND DEBRIDEMENT WILL NOT BE DONE TOMORROW AND THAT IT WILL BE DONE LATER IN THE WEEK ONCE COVID-19 STATUS IS RESULTED. WILL ADMINISTER LOVENOX TONIGHT ORDERED.
[2020-03-11] MEDS: ENOXAPARIN SODIUM 30 MG/0.3 ML DISP.SYRIN SQ SCH (21:20)
[2020-03-12] VITALS: BP 107/62
[2020-03-12] MEDS: IV D5/0.45 NACL 1,000 ML IV PRN (00:35)
--- NOTE | 2020-03-12 02:20 | NUR ---
RN NOTE RECEIVED ALERT FOR CRITICAL LAB: PRELIMINARY BLOOD CULTURE SHOWS GRAM NEGATIVE RODS. PT IS ALREADY ON VANCOMYCIN AND CEFIPIME IV. NOTIFIED DR. OGNG ( MOLDING UTILITY WORKER).
[2020-03-12 04:00] VITALS: BP 149/74
[2020-03-12] MEDS: VANCOMYCIN 0.75 GM in IV D5W 250 ML IV SCH ×2 (04:34→22:04)
[2020-03-12] MEDS: CEFEPIME 1 GM in IV NS 0.9% 50 ML IV SCH ×2 (05:43→17:25)
--- NOTE | 2020-03-12 06:17 | NUR ---
RN JEREMY CALLED JOAO ODONNELL (COUSIN) AND OBTAINED TELEPHONE CONSENT FOR SERIAL DEBRIDEMENT OF SACRUM, BILATERAL HIPS, LEFT LOWER BACK, AND LEFT EAR. WITNESSED BY HEALTHCARE ADVISORY SERVICES MANAGER MARIE.
[2020-03-12 06:37] LABS: BASOPHILS % (AUTO) 0.2 % (0.0-2.0); EOSINOPHILS % (AUTO) 0.8 % (0.0-6.0); HEMATOCRIT 26 % (33-45); HEMOGLOBIN 8.3 g/dL (11.5-14.8); LYMPHOCYTES # (AUTO) 0.4 /CMM (0.8-4.8); LYMPHOCYTES % (AUTO) 5.4 % (20.0-44.0); MEAN CORPUSCULAR HGB CONC 32 g/dl (31.0-36.0); MEAN CORPUSCULAR VOLUME 88 fL (82-100); MONOCYTES # (AUTO) 0.4 /CMM (0.1-1.30); MONOCYTES % (AUTO) 5.1 % (2.0-12.0); NEUTROPHILS # (AUTO) 6.6 /CMM (1.8-8.9); NEUTROPHILS % (AUTO) 88.5 % (43.0-81.0); PLATELET COUNT (AUTO) 253 /CMM (150-450); RED BLOOD CELL COUNT(AUTO) 2.95 MIL/uL (4.0-5.2); WHITE BLOOD COUNT (AUTO) 7.5 K/uL (4.3-11.0)
[2020-03-12] MEDS: CARBIDOPA/LEVODOPA 25/250 MG 1 UDTAB PO SCH ×5 (07:00→20:49)
[2020-03-12 07:09] LABS: ALBUMIN 1.7 g/dL (3.4-5.0); BILIRUBIN,TOTAL 0.3 mg/dL (0.2-1.0); CALCIUM, SERUM 8.1 mg/dL (8.5-10.1); CREATININE 0.8 mg/dL (0.6-1.3); POTASSIUM 3.3 mmol/L (3.5-5.1); TOTAL PROTEIN, SERUM 5.6 g/dL (6.4-8.2)
--- NOTE | 2020-03-12 07:19 | NUR ---
RN CLOSING NOTE NO ACUTE CHANGES OBSERVED OVERNIGHT. ENDORSED TO MORNING RN FOR CONTINUATION OF CARE.
--- NOTE | 2020-03-12 07:37 | NUR ---
rn notes patient received on 4L nasal cannula, no sob noted, patient shows no s/s of pain at this time. Becerril cath present and is patent. D5 1/2 NS @ 85 ml per hour present. Bed at the lowest setting, call light within reach, side rails up x2.
[2020-03-12 08:00] VITALS: BP_SYST 106; BP_SYST 149; BP_DIAS 58; BP_DIAS 74
[2020-03-12] MEDS: MULTIVITAMINS,THERAGRAN 1 UDTAB TABLET PO SCH (08:02)
[2020-03-12] MEDS: ASCORBIC ACID 500 MG TABLET PO SCH (08:02)
[2020-03-12] MEDS: PANTOPRAZOLE 40 MG TABLET.DR PO SCH (08:02)
[2020-03-12] MEDS: ZINC SULFATE 220 MG CAPSULE PO SCH (08:02)
[2020-03-12] MEDS: DAKINS QUARTER STRENGTH (0.125%) 480 ML BOTTLE TOP SCH (08:02)
[2020-03-12] MEDS: ENSURE ENLIVE CHOC 237 ML CAN PO SCH ×3 (08:03→16:52)
[2020-03-12] MEDS: Z GUARD REMEDY 2 OZ OINT TP SCH (08:03)
[2020-03-12] MEDS: HYDROGEL DRESSING 90 GM TUBE TP SCH (08:03)
--- NOTE | 2020-03-12 09:40 | NUR ---
rn notes KORIN given to Yue RN, patient transfered to 113
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
--- NOTE | 2020-03-12 10:30 | NUR ---
RECEIVED ENDORSEMENT FROM MORNING SHIFT RN FOR CONTINUITY OF CARE. PATIENT IS ALERT AND ORIENTED X1, FOLLOWS SIMPLE COMMANDS. SR IN THE 70S NOTED ON THE TELE MONITOR. PATIENT HAS A BUTT, DRAINING WELL. WOUND CARE PER ORDERS. #22 ON LFA, C/D/I, FLUSHING WELL, NO SIGNS OF COMPLICATIONS NOTED. SAFETY MEASURES IMPLEMENTED, BED IN LOWEST POSITION, LOCKED, SIDE RAILS UP, CALL LIGHT WITHIN REACH. WILL CONTINUE TO MONITOR PATIENT FOR CHANGES.
[2020-03-12] MEDS: POTASSIUM CHLORIDE 20 MEQ POWDER PACKET PO SCH ×2 (11:30→13:18)
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
[2020-03-12 12:00] VITALS: BP_SYST 127; BP_SYST 90; BP_DIAS 54
[2020-03-12] MEDS ORDERED: LIDOCAINE 1%-EPI 1:100,000 50 ML VIAL IJ ONE (12:00)
[2020-03-12] MEDS ORDERED: SILVER NITRATE APPLICATOR 1 EA BOX TP ONE (12:00)
[2020-03-12] MEDS ORDERED: POTASSIUM CHLORIDE 20 MEQ POWDER PACKET PO SCH (13:30)
--- NOTE | 2020-03-12 14:32 | NUR ---
spoke with willam hernández for patient and updated with pt. condition and also corrected face sheet to remove meri [place] from contact list.case assistant tami gilman.
--- NOTE | 2020-03-12 14:34 | NUR ---
primary rn lemuel updated about dpoa wishes not ot releSE ANY INFORMATION .
[2020-03-12] MEDS ORDERED: FEE PK DOSING 1 MIN EA MC ONE (14:44)
[2020-03-12 16:00] VITALS: BP_SYST 108; BP_SYST 122; BP_DIAS 59; BP_DIAS 69
[2020-03-12] MEDS: HYDROCODONE/APAP 5/325MG 1 EACH TABLET PO PRN (18:14)
--- NOTE | 2020-03-12 19:19 | NUR ---
RN CLOSING NOTE: PATIENT REMAINS IN BED. NO SIGNS OF ACUTE RESPIRATORY DISTRESS NOTED. NO SIGNS OF ACUTE DISTRESS NOTED. SAFETY MEASURES IMPLEMENTED, BED IN LOWEST POSITION, LOCKED, SIDE RAILS UP, CALL LIGHT WITHIN REACH. ENDORSED TO ONCOMING SHIFT RN FOR CONTINUITY OF CARE.
--- NOTE | 2020-03-12 19:20 | NUR ---
MS RN OPENING NOTES: RECEIVED PT ON 3.5 L VIA NC AND IS TOLERATING WELL. PT HEARD SAYING NO ONCE WHEN REPOSITIONING. OTHER THAN THAT, PT APPEARS TO BE CONTRACTED AND MOANS WHEN BEING REPOSITIONED. PT HAS BUTT CATH AND IS ATTACHED TO DRAINAGE BAG WITH URINE DRAINING. PT HAS IV ON R FOREARM #22G AND IS PATENT AND INTACT. CURRENTLY H/L AT THIS TIME. BED ALARM ACTIVATED. BED KEPT IN LOW, LOCKED POSITION, AND SIDE RAILS X 3 UP. WILL CONTINUE TO MONITOR PT.
[2020-03-12 20:00] VITALS: BP 126/72
--- NOTE | 2020-03-12 20:48 | NUR ---
MS RN NOTES: HARIS MCDOWLEL, AT BEDSIDE PLACING PICC LINE ORDERED. CONSENT IN CHART WELL.
[2020-03-12] MEDS: MUPIROCIN OINT 2% 22 GM TUBE SCH (20:49)
--- NOTE | 2020-03-12 20:57 | NUR ---
MS RN NOTES: HARIS MCDOWELL, AT BEDSIDE. ORDER A STAT CHEST X RAY TO CONFIRM FOR PICC LINE PLACEMENT.
--- NOTE | 2020-03-12 21:05 | NUR ---
MS RN NOTES: CHEST X RAY AT BEDSIDE.
[2020-03-12] MEDS: ENOXAPARIN SODIUM 30 MG/0.3 ML DISP.SYRIN SQ SCH (21:06)
--- NOTE | 2020-03-12 21:20 | NUR ---
MS RAZA NOTES: HARIS MCDOWELL, CALLED AND CONFIRMED PICC LINE PLACEMENT. OK TO USE. Addendum: 03/13/20 at 0144 by MARK MESSER RN PICC LINE DOUBLE LUMEN ON RIGHT BRACHIAL SITE.
[2020-03-13 04:00] VITALS: BP 135/65
[2020-03-13] MEDS: CEFEPIME 1 GM in IV NS 0.9% 50 ML IV SCH ×2 (05:06→18:12)
[2020-03-13] MEDS: CARBIDOPA/LEVODOPA 25/250 MG 1 UDTAB PO SCH ×5 (06:05→21:49)
--- NOTE | 2020-03-13 06:22 | NUR ---
MS RN CLOSING NOTES: ALL NEEDS WERE ATTENDED AND ANTICIPATED FOR. PT KEPT CLEAN, DRY, AND COMFORTABLE. PT TURNED AND REPOSITIONED Q2HRS. WOUND TX PERFORMED ORDERED. PT REMAINS ON 3.5L VIA NC AND IS TOLERATING WELL. PT REMAINS NON-VERBAL THROUGHOUT SHIFT BUT WILL MOAN AND GROAN WHEN BEING REPOSITIONED. NO SOB NOTED. NO S/S OF DISTRESS. PT HAS BUTT CATH AND IS ATTACHED TO DRAINAGE BAG WITH URINE DRAINING. OUTPUT WAS 550ML. PT HAS R FOREARM #22G AND IS PATENT AND INTACT. CURRENTLY H/L. PT ALSO HAS LILY PICC DOUBLE LUMEN AND IS OK TO USE PER JEREMIAS CARBALLO. BED KEPT IN LOW, LOCKED POSITION, AND SIDE RAILS X 3 UP. BED ALARM ACTIVATED. CALL LIGHT WITHIN REACH. WILL ENDORSE TO AM NURSE FOR KORIN.
--- NOTE | 2020-03-13 06:59 | NUR ---
MS RN NOTES: ENDORSED TO LUZ MARINA MCLAUGHLIN, FOR KORIN.
[2020-03-13 07:25] LABS: CALCIUM, SERUM 8.3 mg/dL (8.5-10.1); CREATININE 0.8 mg/dL (0.6-1.3); POTASSIUM 4.4 mmol/L (3.5-5.1)
--- NOTE | 2020-03-13 07:30 | NUR ---
RN Opening Notes- 113-2 RECEIVED PATIENT IN BED BY NURSE, OPENS EYES AND IS VERBAL . NO RESPIRATORY DISTRESS. PATIENT IS ON 3.5 L, , O2 SAT 92%. NOTED LILY CONCHA PICC , RFA #22 FLUSHING WELL. BUTT CATH IN PLACE INTACT AND PATENT, DRAINING CLEAR YELLOW URINE WITH SEDIMENT . SAFETY PRECAUTIONS IMPLEMENTED. BED LOCKED AND IN LOW POSITION. SIDE RAILS X 2 UP. HOB ELEVATED. CALL LIGHT PLACED WITHIN REACH. WILL CONTINUE TO MONITOR.
[2020-03-13 07:35] LABS: BASOPHILS % (AUTO) 0.2 % (0.0-2.0); EOSINOPHILS % (AUTO) 1.3 % (0.0-6.0); HEMATOCRIT 25 % (33-45); LYMPHOCYTES # (AUTO) 0.6 /CMM (0.8-4.8); LYMPHOCYTES % (AUTO) 9.3 % (20.0-44.0); MEAN CORPUSCULAR HGB CONC 32 g/dl (31.0-36.0); MEAN CORPUSCULAR VOLUME 87 fL (82-100); MONOCYTES # (AUTO) 0.5 /CMM (0.1-1.30); MONOCYTES % (AUTO) 7.1 % (2.0-12.0); NEUTROPHILS # (AUTO) 5.5 /CMM (1.8-8.9); NEUTROPHILS % (AUTO) 82.1 % (43.0-81.0); PLATELET COUNT (AUTO) 284 /CMM (150-450); RED BLOOD CELL COUNT(AUTO) 2.85 MIL/uL (4.0-5.2); WHITE BLOOD COUNT (AUTO) 6.7 K/uL (4.3-11.0)
[2020-03-13 08:00] VITALS: BP 99/54
[2020-03-13] MEDS: ZINC SULFATE 220 MG CAPSULE PO SCH (09:27)
[2020-03-13] MEDS: PANTOPRAZOLE 40 MG TABLET.DR PO SCH (09:27)
[2020-03-13] MEDS: MULTIVITAMINS,THERAGRAN 1 UDTAB TABLET PO SCH (09:27)
[2020-03-13] MEDS: ASCORBIC ACID 500 MG TABLET PO SCH (09:27)
[2020-03-13] MEDS: Z GUARD REMEDY 2 OZ OINT TP SCH (09:29)
[2020-03-13] MEDS: HYDROGEL DRESSING 90 GM TUBE TP SCH (09:29)
[2020-03-13] MEDS: DAKINS QUARTER STRENGTH (0.125%) 480 ML BOTTLE TOP SCH (09:30)
[2020-03-13] MEDS: MUPIROCIN OINT 2% 22 GM TUBE SCH ×2 (09:31→21:59)
[2020-03-13] MEDS: ENSURE ENLIVE CHOC 237 ML CAN PO SCH ×3 (09:32→17:40)
[2020-03-13] MEDS: HYDROCODONE/APAP 5/325MG 1 EACH TABLET PO PRN (15:08)
[2020-03-13 16:00] VITALS: BP 104/61
[2020-03-13] MEDS: VANCOMYCIN 0.75 GM in IV D5W 250 ML IV SCH (17:51)
[2020-03-13] MEDS: METRONIDAZOLE 500MG/ NS 100ML 500 MG in PREMIX 1 EA IV SCH (18:38)
--- NOTE | 2020-03-13 19:09 | NUR ---
RN CLOSING NOTE: PATIENT REMAINS IN BED. NO SIGNS OF ACUTE DISTRESS NOTED. SAFETY MEASURES IMPLEMENTED, BED IN LOWEST POSITION, LOCKED, SIDE RAILS UP, CALL LIGHT WITHIN REACH. ENDORSED TO ONCOMING SHIFT RN FOR CONTINUITY OF CARE.
--- NOTE | 2020-03-13 19:30 | NUR ---
MS RN OPENING NOTES The patient is resting on bed. A/O x1, nonverbal. VS are WNL. no S/S acute respiratory distress noted. The patient remains on 3.5 L OF O2 NC, SATURATING AT 100%. The patient has a wound on the right hip, on the sacral area, and redness on both heels. The patient has LILY PICC line double lumen and a 22G IV ON RFA, both flushing well. The pt remains stable at this time. All safety mechanisms in place, bed alarm on, locked in the lowest position, and call light within reach. Will continue to monitor.
[2020-03-13 20:00] VITALS: BP_SYST 125; BP_SYST 142; BP_DIAS 75; BP_DIAS 78
[2020-03-13] MEDS: ENOXAPARIN SODIUM 30 MG/0.3 ML DISP.SYRIN SQ SCH (21:58)
[2020-03-14] MEDS: ACETAMINOPHEN 325 MG TABLET PO PRN (00:51)
[2020-03-14] MEDS: METRONIDAZOLE 500MG/ NS 100ML 500 MG in PREMIX 1 EA IV SCH ×3 (02:48→17:45)
[2020-03-14] MEDS: CEFEPIME 1 GM in IV NS 0.9% 50 ML IV SCH ×2 (05:55→17:45)
[2020-03-14 06:29] LABS: BASOPHILS % (AUTO) 0.5 % (0.0-2.0); EOSINOPHILS % (AUTO) 1.9 % (0.0-6.0); HEMATOCRIT 24 % (33-45); HEMOGLOBIN 7.8 g/dL (11.5-14.8); LYMPHOCYTES # (AUTO) 1.1 /CMM (0.8-4.8); LYMPHOCYTES % (AUTO) 16.1 % (20.0-44.0); MEAN CORPUSCULAR HGB CONC 32 g/dl (31.0-36.0); MEAN CORPUSCULAR VOLUME 87 fL (82-100); MONOCYTES # (AUTO) 0.6 /CMM (0.1-1.30); MONOCYTES % (AUTO) 9.4 % (2.0-12.0); NEUTROPHILS # (AUTO) 4.7 /CMM (1.8-8.9); NEUTROPHILS % (AUTO) 72.1 % (43.0-81.0); PLATELET COUNT (AUTO) 297 /CMM (150-450); RED BLOOD CELL COUNT(AUTO) 2.78 MIL/uL (4.0-5.2); WHITE BLOOD COUNT (AUTO) 6.5 K/uL (4.3-11.0)
[2020-03-14 06:48] LABS: CREATININE 0.9 mg/dL (0.6-1.3); POTASSIUM 3.7 mmol/L (3.5-5.1)
[2020-03-14 06:49] VITALS: BP 119/62
--- NOTE | 2020-03-14 06:56 | NUR ---
RN CLOSING NOTES The patient is resting on bed. A/O x1, nonverbal. VS are WNL. no S/S acute respiratory distress noted. The patient remains on 3.5 L OF O2 NC, SATURATING AT 100%. The patient has a wound on the right hip, on the sacral area, and redness on both heels. The pt remains stable at this time. All safety mechanisms in place, bed alarm on, locked in the lowest position, and call light within reach. Will endorse the next shift.
[2020-03-14] MEDS: CARBIDOPA/LEVODOPA 25/250 MG 1 UDTAB PO SCH ×5 (07:20→20:30)
--- NOTE | 2020-03-14 07:30 | NUR ---
RN OPENING NOTES RECEIVED PATIENT, RESTING AT BED, CALMLY, A/OX1, NON VERBAL, ON NC ON 3.5L, O2 SAT IS 93-94%,TOLERATING WELL, NO S/SX OF RESPIRATORY DISTRESS NOTED, PT HAVE PICC LINE ON RIGHT UPPER ARM AND RFA, G22, PATENT AND INTACT. BUTT CATH IS NOTED, DRAINING YELLOW CLEAN URINE BY GRAVITY. SAFETY MEASURES IMPLEMENTED, SIDE RAILS UP X2, HOB 35 DEGREE, BED IN LOWEST POSITION, CALL LIGHT WITHIN REACH, WILL CONTINUE TO MONITOR
[2020-03-14 08:00] VITALS: BP 137/59
[2020-03-14] MEDS: PANTOPRAZOLE 40 MG TABLET.DR PO SCH (08:24)
[2020-03-14] MEDS: ENSURE ENLIVE CHOC 237 ML CAN PO SCH ×3 (09:47→16:07)
[2020-03-14] MEDS: MUPIROCIN OINT 2% 22 GM TUBE SCH ×2 (09:48→20:30)
[2020-03-14] MEDS: MULTIVITAMINS,THERAGRAN 1 UDTAB TABLET PO SCH (09:48)
[2020-03-14] MEDS: ZINC SULFATE 220 MG CAPSULE PO SCH (09:48)
[2020-03-14] MEDS: ASCORBIC ACID 500 MG TABLET PO SCH (09:48)
[2020-03-14] MEDS: HYDROGEL DRESSING 90 GM TUBE TP SCH (09:49)
[2020-03-14] MEDS: Z GUARD REMEDY 2 OZ OINT TP SCH (09:49)
[2020-03-14] MEDS: DAKINS QUARTER STRENGTH (0.125%) 480 ML BOTTLE TOP SCH (09:49)
[2020-03-14] MEDS: VANCOMYCIN 0.75 GM in IV D5W 250 ML IV SCH (11:07)
--- NOTE | 2020-03-14 15:00 | NUR ---
FOUND PT AT THE BED SCREAMING, AND TRYING TO PULL OUT NC OUT, PINCHING HER NECK, AND TRYING TO REMOVE IV LINES. CALLED MD ECHEVARRIA.OK TO OBTAIN RESTRAINS
[2020-03-14 16:00] VITALS: BP 137/74
--- NOTE | 2020-03-14 19:00 | NUR ---
RN CLOSING NOTES PATIENT REMAINS IN THE BED, WITH BILAT SOFT RESTRAINS TOLERATING WELL, NO S/SX OF DISTRESS NOTED , SAFETY MEASURES IMPLEMENTED, COMFORT NEEDS ARE MET, CALL LIGHT WITHIN REACH, BED IN LOWEST POSITION, WILL ENDORSE TO SPRING COILING MACHINE SETTER NURSE
--- NOTE | 2020-03-14 19:15 | NUR ---
PSYCHOLOGIST RESEARCH ASSISTANT OPENING NOTES: RECEIVED PT A/OX1 IN BED RESTING COMFORTABLY.PATIENT IN NO S/SX OF ACUTE DISTRESS AT THIS TIME. NO SOB NOTED. PATIENT'S BREATHING IS EVEN AND UNLABORED. ON PUREED DIET + CRUSHED MEDS. PATIENT IS ON 3.5 L OF OXYGEN VIA NC; TOLERATING WELL. NOTED IV SITE ON E UA PICC AND R FA # [id number] BOTH PATENT IN INTACT,NO S/S OF INFECTION OR INFILTRATION. BUTT CATH IN PLACE, MINIMAL URINE OUTPUT NOTED BILATERAL SOFT WRIST RESTRAINTS IN PLACE, ASSESSED PER PROTOCOL. SAFETY MEASURES HAVE BEEN PROVIDED AND IMPLEMENTED. PATIENT BED ALARM IS ON. HEAD OF BED ELEVATED. BED IS LOCKED, IN LOWEST POSITION AND SIDE RAILS UP. CALL LIGHT WITHIN REACH OF THE PATIENT. ISOLATION PRECAUTIONS IN PLACE. WILL CONTINUE TO MONITOR AND REASSESS FOR ANY CHANGES.
[2020-03-14 19:52] VITALS: BP 148/79
[2020-03-14 20:00] VITALS: BP 148/79
[2020-03-14] MEDS: ENOXAPARIN SODIUM 30 MG/0.3 ML DISP.SYRIN SQ SCH (21:27)
[2020-03-15] VITALS (7 sets, daily range): BP systolic 110–147; BP diastolic 54–96
[2020-03-15] MEDS: METRONIDAZOLE 500MG/ NS 100ML 500 MG in PREMIX 1 EA IV SCH ×3 (02:09→18:49)
[2020-03-15] MEDS: VANCOMYCIN 0.75 GM in IV D5W 250 ML IV SCH ×2 (04:12→22:08)
[2020-03-15] MEDS: CEFEPIME 1 GM in IV NS 0.9% 50 ML IV SCH (05:02)
[2020-03-15 06:14] LABS: BASOPHILS % (AUTO) 0.6 % (0.0-2.0); EOSINOPHILS % (AUTO) 1.4 % (0.0-6.0); HEMATOCRIT 25 % (33-45); HEMOGLOBIN 8.2 g/dL (11.5-14.8); LYMPHOCYTES % (AUTO) 9.8 % (20.0-44.0); MEAN CORPUSCULAR HGB CONC 32 g/dl (31.0-36.0); MEAN CORPUSCULAR VOLUME 86 fL (82-100); NEUTROPHILS % (AUTO) 81.2 % (43.0-81.0); PLATELET COUNT (AUTO) 333 /CMM (150-450); RED BLOOD CELL COUNT(AUTO) 2.94 MIL/uL (4.0-5.2); WHITE BLOOD COUNT (AUTO) 9.6 K/uL (4.3-11.0)
[2020-03-15 06:15] LABS: BASOPHILS # (AUTO) 0.1 /CMM (0.0-0.2); LYMPHOCYTES # (AUTO) 0.9 /CMM (0.8-4.8); MONOCYTES # (AUTO) 0.7 /CMM (0.1-1.30); NEUTROPHILS # (AUTO) 7.8 /CMM (1.8-8.9)
[2020-03-15] MEDS: CARBIDOPA/LEVODOPA 25/250 MG 1 UDTAB PO SCH ×5 (06:17→21:02)
[2020-03-15 06:23] LABS: CALCIUM, SERUM 7.9 mg/dL (8.5-10.1); CREATININE 0.7 mg/dL (0.6-1.3); MAGNESIUM 2.1 mg/dL (1.8-2.4); POTASSIUM 3.3 mmol/L (3.5-5.1)
--- NOTE | 2020-03-15 06:42 | NUR ---
RN CLOSING NOTE: PATIENT REMAINS IN ROOM. NO SIGNS OF RESPIRATORY. SAFETY MEASURES IMPLEMENTED, BED IN LOWEST POSITION, LOCKED, SIDE RAILS UP, CALL LIGHT WITHIN REACH. ENDORSED TO ONCOMING SHIFT RN FOR CONTINUITY OF CARE.
--- NOTE | 2020-03-15 07:10 | NUR ---
RN OPENING NOTES RECEIVED PATIENT SLEEPING IN BED COMFORTABLY, NO S/SX OF DISTRESS. PT IS AOX1, NON-VERBAL, AND ON BED REST. SHE IS ON 3L OF OXYGEN VIA NC, TOLERATING WELL, NO SOB OR RESP DISTRESS. BUTT CATH IS PATENT AND INTACT, DRAINING CLEAR AND YELLOW URINE BY GRAVITY. MULTIPLE WOUNDS PRESENT, WILL ADDRESS PER WOUND CARE PLAN. IV SITE ON LILY PICC AND RFA 22 G ARE PATENT AND INTACT. SAFETY MEASURES HAVE BEEN IMPLEMENTED, CALL LIGHT IS WITHIN REACH, BED IS IN LOWEST AND LOCKED POSITION, SIDE RAILS UP X2, WILL CONTINUE TO MONITOR FOR ANY CHANGES.
[2020-03-15] MEDS: ENSURE ENLIVE CHOC 237 ML CAN PO SCH ×3 (07:43→18:03)
[2020-03-15] MEDS: PANTOPRAZOLE 40 MG TABLET.DR PO SCH (07:43)
[2020-03-15] MEDS: DAKINS QUARTER STRENGTH (0.125%) 480 ML BOTTLE TOP SCH (08:16)
[2020-03-15] MEDS: ASCORBIC ACID 500 MG TABLET PO SCH (08:17)
[2020-03-15] MEDS: MULTIVITAMINS,THERAGRAN 1 UDTAB TABLET PO SCH (08:17)
[2020-03-15] MEDS: ZINC SULFATE 220 MG CAPSULE PO SCH (08:17)
[2020-03-15] MEDS: MUPIROCIN OINT 2% 22 GM TUBE SCH ×2 (08:20→21:03)
[2020-03-15] MEDS: HYDROGEL DRESSING 90 GM TUBE TP SCH (08:21)
[2020-03-15] MEDS: Z GUARD REMEDY 2 OZ OINT TP SCH (08:21)
[2020-03-15] MEDS ORDERED: POTASSIUM CHLORIDE 20 MEQ TAB.PRT.SR PO ONE (10:30)
--- NOTE | 2020-03-15 13:44 | NUR ---
PT HAS BEEN TRANSFERRED TO ROOM 200, TRANSFER REPORT GIVEN TO RIKI RAZA FOR KROIN
--- NOTE | 2020-03-15 13:45 | NUR ---
MS RN NOTES Received Patient via chantelry[place]. A/O x 1, non-verbal. VS stable with no acute distress. Breathing even and unlabored on 2LPM via NC with no respiratory distress. No signs and symptoms of pain. LILY PICC Line clean, intact, patent and flushing well. 22g PIV on RFA clean, intact, patent and flushing well. Safety precautions in place. Bed locked and set to lowest position with side rails x 2 up. All needs rendered at this time. Call light within reach. Will continue to monitor.
[2020-03-15] MEDS: CEFTAZIDIME 2 G in IV D5W 100 ML IV SCH (18:01)
--- NOTE | 2020-03-15 18:23 | NUR ---
MS RN CLOSING NOTES Patient resting in bed. A/O x 1, non-verbal. VS stable with no acute distress. Breathing even and unlabored on 2LPM via NC with no respiratory distress. No signs and symptoms of pain. LILY PICC Line clean, intact, patent and flushing well. 22g PIV on RFA clean, intact, patent and flushing well. Safety precautions in place. Bed locked and set to lowest position with side rails x 2 up. All needs rendered at this time. Call light within reach. Will endorse plan of care to oncoming shift.
--- NOTE | 2020-03-15 19:44 | NUR ---
MS RN NOTES PATIENT IN BED, OPENS EYES, UNABLE TO ASSESS ALERTNESS. BREATHING EVEN AND UNLABORED ON 3L NC. SHOWS NO SIGNS OF ACUTE RESPIRATORY DISTRESS, NO ACUTE PAIN. BUTT CATHETER INTACT AND IN PLACE FLOWING URINE. IV LILY PICC AND 22G RFA CLEAN DRY AND INTACT. SHOWS NO SIGNS OF INFILTRATION NO REDNESS. SAFETY PRECAUTIONS IN PLACE. BED IN LOWEST POSITION, LOCKED, AND CALL LIGHT KEPT WITHIN REACH. WILL CONTINUE TO MONITOR.
[2020-03-15] MEDS ORDERED: CEFTAZIDIME 1 G in IV NS 0.9% 50 ML IV SCH (21:00)
[2020-03-15] MEDS: ENOXAPARIN SODIUM 30 MG/0.3 ML DISP.SYRIN SQ SCH (21:13)
[2020-03-16] MEDS: METRONIDAZOLE 500MG/ NS 100ML 500 MG in PREMIX 1 EA IV SCH ×3 (01:54→18:13)
[2020-03-16] MEDS: CEFTAZIDIME 2 G in IV D5W 100 ML IV SCH ×2 (05:43→17:18)
[2020-03-16] MEDS: CARBIDOPA/LEVODOPA 25/250 MG 1 UDTAB PO SCH ×5 (06:36→22:05)
--- NOTE | 2020-03-16 06:39 | NUR ---
MS RN NOTES PATIENT IN BED, ALERT AND ORIENTED X 1. BREATHING EVEN AND UNLABORED ON 3L NC. SHOWS NO SIGNS OF ACUTE RESPIRATORY DISTRESS, NO ACUTE PAIN. BUTT CATHETER INTACT AND IN PLACE FLOWING URINE. IV LILY PICC AND 22G RFA CLEAN DRY AND INTACT. SHOWS NO SIGNS OF INFILTRATION NO REDNESS. ALL DUE MEDICATIONS GIVEN. SAFETY PRECAUTIONS IN PLACE. BED IN LOWEST POSITION, LOCKED, AND CALL LIGHT KEPT WITHIN REACH. WILL ENDORSE TO ONCOMING NURSE.
[2020-03-16 06:44] LABS: BASOPHILS # (AUTO) 0.1 /CMM (0.0-0.2); BASOPHILS % (AUTO) 0.7 % (0.0-2.0); EOSINOPHILS % (AUTO) 1.8 % (0.0-6.0); HEMATOCRIT 26 % (33-45); HEMOGLOBIN 8.5 g/dL (11.5-14.8); LYMPHOCYTES # (AUTO) 1.2 /CMM (0.8-4.8); LYMPHOCYTES % (AUTO) 11.7 % (20.0-44.0); MEAN CORPUSCULAR HGB CONC 33 g/dl (31.0-36.0); MEAN CORPUSCULAR VOLUME 87 fL (82-100); MONOCYTES # (AUTO) 0.6 /CMM (0.1-1.30); MONOCYTES % (AUTO) 5.7 % (2.0-12.0); NEUTROPHILS # (AUTO) 8.4 /CMM (1.8-8.9); NEUTROPHILS % (AUTO) 80.1 % (43.0-81.0); PLATELET COUNT (AUTO) 352 /CMM (150-450); RED BLOOD CELL COUNT(AUTO) 3.02 MIL/uL (4.0-5.2); WHITE BLOOD COUNT (AUTO) 10.5 K/uL (4.3-11.0)
--- NOTE | 2020-03-16 07:30 | NUR ---
MS RN NOTES RECEIVED PT IN BED, ASLEEP, EASILY AROUSED, A/O X1. PT TOLERATING RA, WITH NO ACUTE RESPIRATORY DISTRESS NOTED. PT DENIES ANY PAIN OR DISCOMFORT AT THIS TIME. PT DENIES ANY CONCERNS OR QUESTION WELL. LILY PICC AND RFA, FLUSHED WITH NS, INTACT AND OPERATIONAL. PT KEPT COMFORTABLE. CALL LIGHT KEPT WITHIN REACH. PT'S BED IN LOWEST, LOCKED POSITION WITH SR X3. WILL CONTINUE PLAN OF CARE.
[2020-03-16 07:36] LABS: CALCIUM, SERUM 8.1 mg/dL (8.5-10.1); CREATININE 0.8 mg/dL (0.6-1.3); POTASSIUM 3.9 mmol/L (3.5-5.1)
[2020-03-16 08:00] VITALS: BP 143/69
[2020-03-16] MEDS: ENSURE ENLIVE CHOC 237 ML CAN PO SCH ×3 (08:00→17:37)
[2020-03-16] MEDS: ASCORBIC ACID 500 MG TABLET PO SCH (08:53)
[2020-03-16] MEDS: PANTOPRAZOLE 40 MG TABLET.DR PO SCH (08:53)
[2020-03-16] MEDS: MULTIVITAMINS,THERAGRAN 1 UDTAB TABLET PO SCH (08:53)
[2020-03-16] MEDS: ZINC SULFATE 220 MG CAPSULE PO SCH (08:53)
[2020-03-16] MEDS: MUPIROCIN OINT 2% 22 GM TUBE SCH ×2 (09:09→21:55)
[2020-03-16] MEDS: DAKINS QUARTER STRENGTH (0.125%) 480 ML BOTTLE TOP SCH (09:09)
[2020-03-16] MEDS: HYDROGEL DRESSING 90 GM TUBE TP SCH (09:10)
[2020-03-16] MEDS: Z GUARD REMEDY 2 OZ OINT TP SCH (09:10)
[2020-03-16] MEDS: VANCOMYCIN 0.75 GM in IV D5W 250 ML IV SCH (16:15)
--- NOTE | 2020-03-16 17:20 | NUR ---
MS RN NOTES SEEN AND EVALUATED BY DR ECHEVARRIA. JOAO/ELPIDIO ABLE TO SPEAK TO DR ECHEVARRIA VIA PHONE, INFORMED ABOUT PLAN OF CARE. WILL CONTINUE TO MONITOR.
[2020-03-16] MEDS: MEGESTROL ACETATE SUSP 400 MG/10 ML UDC PO SCH (17:37)
--- NOTE | 2020-03-16 18:33 | NUR ---
MS RN NOTES PT REMAINS IN BED, INTERMITTENTLY DOZING OFF, EASILY AROUSED, A/O X1. PT TOLERATING RA, WITH NO ACUTE RESPIRATORY DISTRESS NOTED. PT DENIES ANY PAIN OR DISCOMFORT AT THIS TIME. LILY PICC AND RFA G22, FLUSHED WITH NS, INTACT AND OPERATIONAL. PT KEPT COMFORTABLE. ALL NEEDS AND CARE ATTENDED. CALL LIGHT KEPT WITHIN REACH. PT'S BED IN LOWEST, LOCKED POSITION WITH SR X3. WILL ENDORSE TO INCOMING NIGHT NURSE FOR KORIN.
--- NOTE | 2020-03-16 19:30 | NUR ---
Received in bed asleep Resp even and unlabored. skin warm and dry. bed alarm is on. appears comfortable at this time HOB is elevated semifowlers position
[2020-03-16 20:08] VITALS: BP 111/44
[2020-03-16 20:10] VITALS: BP 111/44
[2020-03-16] MEDS: ENOXAPARIN SODIUM 30 MG/0.3 ML DISP.SYRIN SQ SCH (21:56)
[2020-03-16] MEDS: MIRTAZAPINE 15 MG TABLET PO SCH (22:05)
[2020-03-17] MEDS: METRONIDAZOLE 500MG/ NS 100ML 500 MG in PREMIX 1 EA IV SCH ×3 (02:03→17:00)
--- NOTE | 2020-03-17 05:19 | NUR ---
ENDING NOTES: REPOSITIONED Q 2 HOURS SUPPORTED WITH PILLOWS. wHEN BEING REPOSITIONED SHE WILL MAKE HER ARMS AND LEGS RIDGET AND PUSH NURSE AWAY. SHE RELAXES AFTER THE REPOSITIONING. NOT ABLE TO KEEP THE NASAL CANNULA ON, sATS ON rOOM AIR 90 -91% dRESSING ON THE SACRUM AND RIGHT HIP AND THE EAR CHANGED ORDERED. AM LADS DRAWN VIA THE PICLINE CBC AND BMP TUBES. NO EDEMA NOTED. BUTT DRAINAGE CLEAR YELLOW REMAINS NONVERBAL AND REFUSING TO DRINK ASP PRECAUTIONS TAKEN
[2020-03-17] MEDS: CEFTAZIDIME 2 G in IV D5W 100 ML IV SCH ×2 (05:46→18:07)
[2020-03-17 06:38] LABS: BASOPHILS % (AUTO) 0.4 % (0.0-2.0); EOSINOPHILS % (AUTO) 2.7 % (0.0-6.0); HEMATOCRIT 27 % (33-45); HEMOGLOBIN 8.9 g/dL (11.5-14.8); LYMPHOCYTES # (AUTO) 1.5 /CMM (0.8-4.8); LYMPHOCYTES % (AUTO) 15.5 % (20.0-44.0); MEAN CORPUSCULAR HGB CONC 32 g/dl (31.0-36.0); MEAN CORPUSCULAR VOLUME 86 fL (82-100); MONOCYTES # (AUTO) 0.6 /CMM (0.1-1.30); MONOCYTES % (AUTO) 5.8 % (2.0-12.0); NEUTROPHILS # (AUTO) 7.4 /CMM (1.8-8.9); NEUTROPHILS % (AUTO) 75.6 % (43.0-81.0); PLATELET COUNT (AUTO) 407 /CMM (150-450); RED BLOOD CELL COUNT(AUTO) 3.17 MIL/uL (4.0-5.2); WHITE BLOOD COUNT (AUTO) 9.8 K/uL (4.3-11.0)
[2020-03-17 06:56] LABS: CALCIUM, SERUM 8.4 mg/dL (8.5-10.1); CREATININE 0.7 mg/dL (0.6-1.3); POTASSIUM 3.6 mmol/L (3.5-5.1)
[2020-03-17] MEDS: CARBIDOPA/LEVODOPA 25/250 MG 1 UDTAB PO SCH ×5 (07:08→21:04)
--- NOTE | 2020-03-17 07:32 | NUR ---
M/S RN OPENING NOTES RECEIVED PT ON BED IN LEFT SIDE LYING POSITION, ASLEEP BUT EASILY AROUSABLE, A/O X1, OPEN EYES AND NON VERBAL. RESPIRATION EVEN AND NON LABORED WITH NO ACUTE RESPIRATORY DISTRESS, ON ROOM AIR TEMP. ABD SOFT AND NON DISTENDED WITH ACTIVE BOWEL SOUNDS, ON FC WITH LIGHT YELLOW OUTPUT. SKIN WARM TO TOUCH AND DRY. NO S/SX OF PAIN AND DISCOMFORT. BLE OFFLOAD. IV SITE AT RIGHT UPPER PICC LINE AND RIGHT FA @22 PATENT IN FLUSHING, SITE CLEAN WITH NO S/SX OF INFILTRATION. BED IN LOW LOCKED POSITION, SR X2 UP FOR SAFETY, NEAR IN NURSES STATION. WILL CONTINUE TO EVALUATE CARE.
[2020-03-17] MEDS: PANTOPRAZOLE 40 MG TABLET.DR PO SCH (07:45)
[2020-03-17 08:00] VITALS: BP 159/70
[2020-03-17] MEDS: ENSURE ENLIVE CHOC 237 ML CAN PO SCH ×3 (08:05→17:04)
[2020-03-17] MEDS: MULTIVITAMINS,THERAGRAN 1 UDTAB TABLET PO SCH (08:39)
[2020-03-17] MEDS: ZINC SULFATE 220 MG CAPSULE PO SCH (08:39)
[2020-03-17] MEDS: ASCORBIC ACID 500 MG TABLET PO SCH (08:39)
[2020-03-17] MEDS: MEGESTROL ACETATE SUSP 400 MG/10 ML UDC PO SCH ×2 (08:39→17:00)
[2020-03-17] MEDS: MUPIROCIN OINT 2% 22 GM TUBE SCH ×2 (08:43→21:04)
[2020-03-17] MEDS: HYDROGEL DRESSING 90 GM TUBE TP SCH (08:44)
[2020-03-17] MEDS: Z GUARD REMEDY 2 OZ OINT TP SCH (08:44)
[2020-03-17] MEDS: DAKINS QUARTER STRENGTH (0.125%) 480 ML BOTTLE TOP SCH (08:44)
--- NOTE | 2020-03-17 10:01 | NUR ---
M/S RN NOTES PT ABLE TO VERBALIZED COLD AND WANTED TO SLEEP. EYES OPEN. FOLLOW COMMANDS BUT REFUSED TO BE TOUCHED. BLANKET PLACED. SAFETY CONTINUOUSLY PROVIDED. WILL CONTINUE TO MONITOR CARE.
[2020-03-17] MEDS: VANCOMYCIN 0.75 GM in IV D5W 250 ML IV SCH (10:23)
[2020-03-17 16:00] VITALS: BP 107/50
--- NOTE | 2020-03-17 17:45 | NUR ---
M/S RN NOTES PT SEEN AND EVALUATED BY DR. ECHEVARRIA. NO NEW ORDERS OBTAINED
[2020-03-17] MEDS ORDERED: SILVER NITRATE APPLICATOR 1 EA BOX TP ONE (18:00)
[2020-03-17] MEDS ORDERED: LIDOCAINE 1%-EPI 1:100,000 20 ML VIAL TP ONE (18:00)
--- NOTE | 2020-03-17 18:32 | NUR ---
M/S RN CLOSING NOTES PT A/O X1, ABLE TO RESPOND TO QUESTIONS, PRESENCE OF CONFUSION AND AGGRESSIVENESS EVIDENCED BY GRASPING THROUGH BOTH HANDS IF REFUSED TO BE TOUCHED. NO PRESENCE OF ACUTE RESPIRATORY DISTRESS. ABD SOFT AND NON DISTENDED WITH ACTIVE BOWEL SOUNDS, ON FC WITH LIGHT YELLOW OUTPUT, 400 ML. SKIN WARM TO TOUCH AND DRY. NO S/SX OF PAIN AND DISCOMFORT. TREATMENT RENDERED TODAY ORDERED. WOUND DEBRIDEMENT SCHEDULED 03/18 PER EL P.A, BLE OFFLOAD. IV SITE AT RIGHT UPPER PICC LINE AND RIGHT FA #22 PATENT IN FLUSHING, SITE CLEAN WITH NO S/SX OF INFILTRATION. BED IN LOW LOCKED POSITION, SR X2 UP FOR SAFETY, NEAR IN NURSES STATION. ENDORSED CARE TO NEXT SHIFT.
--- NOTE | 2020-03-17 19:54 | NUR ---
MS/RN OPENING NOTES RECEIVED PATIENT IN BED, OPENS EYES, CAN COOPERATE AND LEFT ARM STRONG, RIGHT ARM BOTH ARM CONTRACTED, ON ROOM AIR SATURATION OF 92% AND WITH OXYGEN AT 2 LITER AT 95%. SKIN WARM TO TOUCH, LILY PICC LINE,AND WITH MULTIPLE SKIN ISSUES, FOR TURNING AND REPOSITION. RECEIVED ENDORSEMENT FROM AM RN FOR KORIN. BUTT CATHETER DRAINING YELLOW URINE.
[2020-03-17 20:00] VITALS: BP 119/62
[2020-03-17] MEDS: MIRTAZAPINE 15 MG TABLET PO SCH (21:04)
[2020-03-17] MEDS: ENOXAPARIN SODIUM 30 MG/0.3 ML DISP.SYRIN SQ SCH (21:07)
[2020-03-18] MEDS: METRONIDAZOLE 500MG/ NS 100ML 500 MG in PREMIX 1 EA IV SCH ×3 (01:41→18:30)
[2020-03-18] MEDS: VANCOMYCIN 0.75 GM in IV D5W 250 ML IV SCH (04:31)
[2020-03-18] MEDS: CEFTAZIDIME 2 G in IV D5W 100 ML IV SCH ×2 (05:40→18:30)
[2020-03-18] MEDS: CARBIDOPA/LEVODOPA 25/250 MG 1 UDTAB PO SCH ×5 (06:11→21:37)
--- NOTE | 2020-03-18 06:48 | NUR ---
200-1 MS/RN NOTES PATIENT IN BED, AWAKE, OPENS EYES WITH GOOD EYE CONTACT, PATIENT REQUIRE REORIENTATION AND ENCOURAGED FOR COMPLIANCE TO CARE. MONITORED FOR INFECTION AND OTHER COMCERNS. RESPIRATIONS EVEN AND UNLABORED, ON ROOM AIR, SHABBIR ENDORSE TO AM RN FOR KORIN.
[2020-03-18 07:22] LABS: CALCIUM, SERUM 8.2 mg/dL (8.5-10.1); CREATININE 0.8 mg/dL (0.6-1.3); POTASSIUM 3.5 mmol/L (3.5-5.1)
[2020-03-18 07:30] VITALS: BP 125/88
--- NOTE | 2020-03-18 08:00 | NUR ---
rn notes received patient in the bed a/o x1, confused, total care. patient has no acute respiratory distress, v/s stable, iv pickling on right brachial area intact, infusing fragyl 100 ml/hr intact, tommie rating by external grinder tool, tolerated breakfast well. administered scheduled medication by crushed. dressing changed, call light within to reach. continued monitoring.
[2020-03-18] MEDS: MULTIVITAMINS,THERAGRAN 1 UDTAB TABLET PO SCH (09:49)
[2020-03-18] MEDS: ZINC SULFATE 220 MG CAPSULE PO SCH (09:50)
[2020-03-18] MEDS: MEGESTROL ACETATE SUSP 400 MG/10 ML UDC PO SCH ×2 (09:50→18:28)
[2020-03-18] MEDS: ASCORBIC ACID 500 MG TABLET PO SCH (09:50)
[2020-03-18] MEDS: PANTOPRAZOLE 40 MG TABLET.DR PO SCH (09:51)
[2020-03-18] MEDS: ENSURE ENLIVE CHOC 237 ML CAN PO SCH ×3 (09:52→18:30)
[2020-03-18] MEDS: MUPIROCIN OINT 2% 22 GM TUBE SCH ×2 (09:53→21:37)
[2020-03-18] MEDS: DAKINS QUARTER STRENGTH (0.125%) 480 ML BOTTLE TOP SCH (09:54)
[2020-03-18] MEDS: Z GUARD REMEDY 2 OZ OINT TP SCH (09:55)
[2020-03-18] MEDS: HYDROGEL DRESSING 90 GM TUBE TP SCH (09:55)
--- NOTE | 2020-03-18 13:00 | NUR ---
rn notes patient refused pain, assist turn and reposition q2 hr, seen patient by wound EMILY handley for debridement.
[2020-03-18 17:00] VITALS: BP 134/66
--- NOTE | 2020-03-18 18:00 | NUR ---
rn notes SEEN PATIENT BY HOSPITALIST MD ECHEVARRIA, PLAN IS DISCHARGE PATIENT HOME ON WEDNESDAY, LONG ANTIBIOTIC THERAPY.LAB WORK , AND CASE MANAGEMENT CONSULTATION ALSO, ASSIST PATIENT EATING 65% DINNER. MEDICATION ADMINISTERED. CALL LIGHT WITHIN TO REACH, ASSIST TURN AND REPOSTION Q 2 HR, ENDORSED ONCOMING NURSE FOLLOW PLAN OF CARE.
--- NOTE | 2020-03-18 19:45 | NUR ---
RN NOTES RECEIVED PATIENT ON BED IN LEFT SIDE LYING POSITION, ASLEEP BUT EASILY AROUSABLE, A/O X1, OPEN EYES AND NON VERBAL. RESPIRATION EVEN AND NON LABORED WITH NO SIGNS OF ACUTE CARDIAC OR RESPIRATORY DISTRESS, ON ROOM AIR TEMP. ABDOMEN SOFT AND NON DISTENDED WITH ACTIVE BOWEL SOUNDS, ON FC WITH LIGHT YELLOW OUTPUT. SKIN WARM TO TOUCH AND DRY. NO S/SX OF PAIN AND DISCOMFORT. BLE OFFLOAD. IV SITE AT RIGHT UPPER PICC LINE AND RIGHT FA @22 PATENT IN FLUSHING, SITE CLEAN WITH NO S/SX OF INFILTRATION.SAFETY MEASURES IN PLACE, ASPIRATION PRECAUTION EMPHASIZED. BED IN LOW LOCKED POSITION, SR X2 UP FOR SAFETY, NEAR IN NURSES STATION. WILL CONTINUE TO MONITOR ACCORDINGLY.
[2020-03-18 20:30] VITALS: BP 128/69
[2020-03-18] MEDS: MIRTAZAPINE 15 MG TABLET PO SCH (21:37)
[2020-03-18] MEDS: ENOXAPARIN SODIUM 30 MG/0.3 ML DISP.SYRIN SQ SCH (21:38)
[2020-03-19] MEDS: VANCOMYCIN 0.75 GM in IV D5W 250 ML IV SCH ×2 (01:06→16:23)
[2020-03-19] MEDS: METRONIDAZOLE 500MG/ NS 100ML 500 MG in PREMIX 1 EA IV SCH ×2 (02:46→10:05)
[2020-03-19] MEDS: CEFTAZIDIME 2 G in IV D5W 100 ML IV SCH ×2 (05:57→18:15)
[2020-03-19 07:07] LABS: BASOPHILS % (AUTO) 0.4 % (0.0-2.0); EOSINOPHILS % (AUTO) 1.3 % (0.0-6.0); HEMATOCRIT 26 % (33-45); HEMOGLOBIN 8.5 g/dL (11.5-14.8); LYMPHOCYTES # (AUTO) 1.6 /CMM (0.8-4.8); LYMPHOCYTES % (AUTO) 14.5 % (20.0-44.0); MEAN CORPUSCULAR HGB CONC 33 g/dl (31.0-36.0); MEAN CORPUSCULAR VOLUME 87 fL (82-100); MONOCYTES # (AUTO) 0.9 /CMM (0.1-1.30); NEUTROPHILS # (AUTO) 8.2 /CMM (1.8-8.9); NEUTROPHILS % (AUTO) 75.8 % (43.0-81.0); PLATELET COUNT (AUTO) 421 /CMM (150-450); RED BLOOD CELL COUNT(AUTO) 2.98 MIL/uL (4.0-5.2); WHITE BLOOD COUNT (AUTO) 10.8 K/uL (4.3-11.0)
[2020-03-19] MEDS: CARBIDOPA/LEVODOPA 25/250 MG 1 UDTAB PO SCH ×5 (07:11→21:36)
[2020-03-19 07:24] LABS: CALCIUM, SERUM 8.4 mg/dL (8.5-10.1); CREATININE 0.7 mg/dL (0.6-1.3); POTASSIUM 3.9 mmol/L (3.5-5.1)
--- NOTE | 2020-03-19 07:35 | NUR ---
ms rn received on bed, awake,alert,oriented x1,not in any form of distress,respirations even and unlabored,no sob noted, lungs are clear,abdomen soft,positive bowel sounds,denies pain at this time,all needs attended.
[2020-03-19 08:00] VITALS: BP 152/80
[2020-03-19] MEDS: ENSURE ENLIVE CHOC 237 ML CAN PO SCH ×3 (08:42→18:16)
[2020-03-19] MEDS: MEGESTROL ACETATE SUSP 400 MG/10 ML UDC PO SCH ×2 (08:49→16:21)
[2020-03-19] MEDS: ZINC SULFATE 220 MG CAPSULE PO SCH (08:49)
[2020-03-19] MEDS: ASCORBIC ACID 500 MG TABLET PO SCH (08:49)
[2020-03-19] MEDS: MULTIVITAMINS,THERAGRAN 1 UDTAB TABLET PO SCH (08:49)
[2020-03-19] MEDS: PANTOPRAZOLE 40 MG TABLET.DR PO SCH (08:50)
[2020-03-19] MEDS: HYDROGEL DRESSING 90 GM TUBE TP SCH (08:52)
[2020-03-19] MEDS: DAKINS QUARTER STRENGTH (0.125%) 480 ML BOTTLE TOP SCH (08:52)
[2020-03-19] MEDS: Z GUARD REMEDY 2 OZ OINT TP SCH (08:53)
[2020-03-19] MEDS: MUPIROCIN OINT 2% 22 GM TUBE SCH ×2 (08:53→21:38)
--- NOTE | 2020-03-19 10:00 | NUR ---
ms wheeler breakfast served,due meds given,tolerated well.
[2020-03-19] MEDS: METRONIDAZOLE 500 MG TABLET PO SCH ×2 (13:25→21:36)
[2020-03-19 15:56] VITALS: BP 118/62
--- NOTE | 2020-03-19 19:00 | NUR ---
MS RN ON BED, NO DISTRESS NOTED.
--- NOTE | 2020-03-19 19:59 | NUR ---
received lying in bed eyes closed resp even and unlabored mid line rt upper arm bed alarm on nonverbal at this time
[2020-03-19 20:58] VITALS: BP 132/55
[2020-03-19] MEDS: ENOXAPARIN SODIUM 30 MG/0.3 ML DISP.SYRIN SQ SCH (21:35)
[2020-03-19] MEDS: MIRTAZAPINE 15 MG TABLET PO SCH (21:36)
[2020-03-20] MEDS: METRONIDAZOLE 500 MG TABLET PO SCH ×2 (05:04→12:22)
[2020-03-20] MEDS: CEFTAZIDIME 2 G in IV D5W 100 ML IV SCH ×2 (05:35→17:06)
--- NOTE | 2020-03-20 05:52 | NUR ---
Ending Notes:Repositioned and using pillows for support Q 2 - 3 hours. Max assist d/t she will make her self ridget. Dressing chg done as ordered to the back and right hip. To give her her medication I mixed with applesauce and the 2nd time with chol pudding, I open her mouth and give her small spoonfuls. she will swallow asp precautions.
[2020-03-20] MEDS: CARBIDOPA/LEVODOPA 25/250 MG 1 UDTAB PO SCH ×4 (06:20→17:10)
--- NOTE | 2020-03-20 07:15 | NUR ---
MS RN NOTES RECEIVED PT IN BED, ASLEEP, EASILY AROUSED, A/O X1. PT ON SUPPLEMENTARY OXYGEN AT 3L VIA NC, WITH NO ACUTE RESPIRATORY DISTRESS NOTED. PT DENIES ANY PAIN OR DISCOMFORT AT THIS TIME. PT DENIES ANY CONCERNS OR QUESTION WELL. LILY PICC AND RFA G22, FLUSHED WITH NS, INTACT AND OPERATIONAL. FC IN PLACE WITH CLEAR YELLOW URINE IN THE BAG. PT KEPT COMFORTABLE. CALL LIGHT KEPT WITHIN REACH. PT'S BED IN LOWEST, LOCKED POSITION WITH SR X3. WILL CONTINUE PLAN OF CARE.
[2020-03-20 07:42] LABS: CALCIUM, SERUM 8.1 mg/dL (8.5-10.1); CREATININE 0.8 mg/dL (0.6-1.3); POTASSIUM 3.8 mmol/L (3.5-5.1)
[2020-03-20 08:00] VITALS: BP 118/82
[2020-03-20] MEDS: ASCORBIC ACID 500 MG TABLET PO SCH (08:20)
[2020-03-20] MEDS: MULTIVITAMINS,THERAGRAN 1 UDTAB TABLET PO SCH (08:20)
[2020-03-20] MEDS: PANTOPRAZOLE 40 MG TABLET.DR PO SCH (08:20)
[2020-03-20] MEDS: ZINC SULFATE 220 MG CAPSULE PO SCH (08:22)
[2020-03-20] MEDS: ENSURE ENLIVE CHOC 237 ML CAN PO SCH ×3 (08:22→17:10)
[2020-03-20] MEDS: MEGESTROL ACETATE SUSP 400 MG/10 ML UDC PO SCH ×2 (08:22→17:10)
[2020-03-20] MEDS: MUPIROCIN OINT 2% 22 GM TUBE SCH (08:22)
[2020-03-20] MEDS: DAKINS QUARTER STRENGTH (0.125%) 480 ML BOTTLE TOP SCH (08:33)
[2020-03-20] MEDS: HYDROGEL DRESSING 90 GM TUBE TP SCH (08:34)
[2020-03-20] MEDS: Z GUARD REMEDY 2 OZ OINT TP SCH (08:36)
--- NOTE | 2020-03-20 09:22 | NUR ---
MS RN NOTES PT AWAKE, PREFERS NOT TO PUT THE SUPPLEMENTARY OXYGEN, STATING "I HAVEN'T USING IT FOR COUPLE OF DAYS AND I DONT WANT IT". PT NOT IN DISTRESS, WILL CONTINUE TO MONITOR.
[2020-03-20] MEDS: VANCOMYCIN 0.75 GM in IV D5W 250 ML IV SCH (11:04)
[2020-03-20 16:00] VITALS: BP 111/54
--- NOTE | 2020-03-20 18:44 | NUR ---
MS CHICKEN BONER NOTES PT AWAKE, A/OX2. PT TOLERATING RA, WITH NO ACUTE RESPIRATORY DISTRESS NOTED. PT DENIES ANY PAIN OR DISCOMFORT AT THE TIME OF DISCHARGE. LILY PICC AND RFA G22, FLUSHED WITH NS, INTACT AND OPERATIONAL, BOTH KEPT FOR CONTINUING THE IV ANTIBIOTICS. FC IN PLACE WITH CLEAR YELLOW URINE IN THE BAG, ALSO KEPT PER /SWATHI DUE TO MULTIPLE WOUNDS. WOUND CARE PROVIDED AND PICTURES TAKEN AND FILED IN THE CHART. PT'S DISCHARGE INSTRUCTIONS AND INVENTORY LIST, SIGNED BY 2 RNS DUE TO PT UNABLE TO SIGN. ALL NEEDS AND CARE ATTENDED AND PROVIDED. RN ABLE TO GIVE DISCHARGE INSTRUCTIONS AND PRESCRIPTIONS TO COUSIN/POA/JOAO PERSONALLY WHEN PT ESCORTED WAS TO THE LOBBY VIA WHEELCHAIR AND TO THE CAR. PT LEFT THE HOSPITAL AT 1830.
== END 2020-03-20 18:30 | disposition home health service (06) | DRG 853 ==
LOC: ER 15:51 → TELE1 16:53 → MEDSG1 03-12 09:28 → MEDSG2 03-15 12:50
PROVIDERS: ADMIT Internal Medicine; ATTEND Internal Medicine
PROC: 0QB30ZZ Excision of Left Pelvic Bone, Open Approach (ICD-10-PCS; principal; 2020-03-12)
PROC: 0KBP0ZZ Excision of Left Hip Muscle, Open Approach (ICD-10-PCS; 2020-03-12)
PROC: 0KBN0ZZ Excision of Right Hip Muscle, Open Approach (ICD-10-PCS; 2020-03-12)
PROC: 02HV33Z Insertion of Infusion Device into Superior Vena Cava, Percutaneous Approach (ICD-10-PCS; 2020-03-12)
PROC: B548ZZA Ultrasonography of Superior Vena Cava, Guidance (ICD-10-PCS; 2020-03-12)
PROC: 0KBN0ZZ Excision of Right Hip Muscle, Open Approach (ICD-10-PCS; 2020-03-18)
DX: A41.9 Sepsis, unspecified organism (principal); L89.154 Pressure ulcer of sacral region, stage 4; L89.894 Pressure ulcer of other site, stage 4; L89.214 Pressure ulcer of right hip, stage 4; L89.144 Pressure ulcer of left lower back, stage 4; I21.4 Non-ST elevation (NSTEMI) myocardial infarction; E43 Unspecified severe protein-calorie malnutrition; N39.0 Urinary tract infection, site not specified; M86.9 Osteomyelitis, unspecified; G93.40 Encephalopathy, unspecified; R64 Cachexia; G20 Parkinson's disease; F02.80 Dementia in other diseases classified elsewhere, unspecified severity, without behavioral disturbance, psychotic disturbance, mood disturbance, and anxiety; Z66 Do not resuscitate; I10 Essential (primary) hypertension; D63.8 Anemia in other chronic diseases classified elsewhere; D50.9 Iron deficiency anemia, unspecified; Z87.440 Personal history of urinary (tract) infections; Z79.899 Other long term (current) drug therapy; E87.6 Hypokalemia; R13.10 Dysphagia, unspecified; Z74.01 Bed confinement status; I70.0 Atherosclerosis of aorta; I25.2 Old myocardial infarction; B96.20 Unspecified Escherichia coli [E. coli] as the cause of diseases classified elsewhere; M62.40 Contracture of muscle, unspecified site; S00.412A Abrasion of left ear, initial encounter; X58.XXXA Exposure to other specified factors, initial encounter; Y92.9 Unspecified place or not applicable
CPT/HCPCS: 36415; 71045-TC; 80048-TC; 80053-TC; 80061-TC; 80076-TC; 80202-TC; 81000-TC; 82550-TC; 82728-TC; 83540-TC; 83605-TC; 83615-TC; 83735-TC; 83880; 84443-TC; 84484-TC; 85025-TC; 85378-TC; 85730-TC; 86140-TC; 87040-TC; 87070-TC; 87081-TC; 87086-TC; 87186-TC; 92521; 97530-TC; A4216; A6248; A6253; A6403; C1751; G0378; J0692; J0713; J1650; J2270; J3370; J3490; J7030; J7040; J7050; J7060; U0003-CS

== ENCOUNTER 2020-04-03 11:54 | Emergency (ER) | payer MEDICARE, BC ==
[~2020-04-03] VITALS: Ht 157.5 cm; Wt 46.7 kg
[~2020-04-03 11:54] MED LIST changes: -FURO-145 PO; -GUAI5SYR PO; -MELO-105 PO; -POTA8TAB3 PO
[2020-04-03 12:04] VITALS: BP 94/53
--- NOTE | 2020-04-03 12:04 | NUR ---
AT BEDSIDE FOR EVAL.
--- NOTE | 2020-04-03 12:26 | NUR ---
PICC LINE NURSE AT BEDSIDE.
--- NOTE | 2020-04-03 13:24 | NUR ---
Patient discharged to home in stable condition. Written and verbal after care instructions given. Patient verbalizes understanding of instruction.
== END 2020-04-03 13:25 | disposition home or self-care (01) ==
LOC: ER 11:54
DX: T82.898A Other specified complication of vascular prosthetic devices, implants and grafts, initial encounter (principal); G20 Parkinson's disease; F02.80 Dementia in other diseases classified elsewhere, unspecified severity, without behavioral disturbance, psychotic disturbance, mood disturbance, and anxiety; I11.0 Hypertensive heart disease with heart failure; I50.9 Heart failure, unspecified; R64 Cachexia; Z45.2 Encounter for adjustment and management of vascular access device; Z68.1 Body mass index [BMI] 19.9 or less, adult; Z79.899 Other long term (current) drug therapy
CPT/HCPCS: 36569; 99285; C1751; C1769